=== PATIENT | female | born 1955 | race Caucasian/White ===

== ENCOUNTER 2022-07-20 10:57 | Inpatient (IN) ==
--- NOTE | 2022-07-04 11:01 | PAT Medication Instructions ---
Medication Instructions Date of Service July 04, 2022 Home Medications Medical Marijuana 1 ea PO UD acetaminophen 500 mg tablet 500 mg PO BID albuterol sulfate 90 mcg/actuation aerosol inhaler 1 puff inhalation Q4H PRN amlodipine 10 mg tablet 10 mg PO QAM buspirone 30 mg tablet 30 mg PO BID cyanocobalamin (vitamin B-12) 1,000 mcg/mL injection solution 1,000 mcg IM Q30D cyclobenzaprine 10 mg tablet 10 mg PO HS duloxetine 60 mg capsule,delayed release (Cymbalta) 60 mg PO BID ezetimibe 10 mg tablet 10 mg PO QAM fexofenadine-pseudoephedrine ER 180 mg-240 mg tablet,ext.release 24 hr (Brittney- D 24 Hour) 1 tab PO QAM gabapentin 300 mg tablet,extended release 24 hr 300 mg PO BID hydrochlorothiazide 25 mg tablet 25 mg PO QAM hydroxyzine HCl 50 mg tablet 50 mg PO HS levothyroxine 25 mcg tablet (Synthroid) 25 mcg PO QAM olmesartan 40 mg tablet 40 mg PO QAM oxycodone-acetaminophen 10 mg-325 mg tablet (Percocet) 1 tab PO Q6H PRN ropinirole 2 mg tablet,extended release 24 hr 2 mg PO HS simvastatin 40 mg tablet 40 mg PO QAM sucralfate 1 gram tablet 1 g PO BID trazodone 50 mg tablet 50 mg PO HS Continue as directed cyanocobalamin (vitamin B-12) 1,000 mcg/mL injection solution 1,000 mcg IM Q30D STOP taking 24 hours before surgery Medical Marijuana 1 ea PO UD DO NOT take the morning of surgery fexofenadine-pseudoephedrine ER 180 mg-240 mg tablet,ext.release 24 hr (Brittney- D 24 Hour) 1 tab PO QAM hydrochlorothiazide 25 mg tablet 25 mg PO QAM olmesartan 40 mg tablet 40 mg PO QAM sucralfate 1 gram tablet 1 g PO BID Take morning of surgery With a small sip of water, OTHERWISE NOTHING TO EAT OR DRINK AFTER MIDNIGHT: acetaminophen 500 mg tablet 500 mg PO BID albuterol sulfate 90 mcg/actuation aerosol inhaler 1 puff inhalation Q4H PRN(use if needed; please bring with you to hospital day of surgery if possible) amlodipine 10 mg tablet 10 mg PO QAM buspirone 30 mg tablet 30 mg PO BID duloxetine 60 mg capsule,delayed release (Cymbalta) 60 mg PO BID ezetimibe 10 mg tablet 10 mg PO QAM gabapentin 300 mg tablet,extended release 24 hr 300 mg PO BID oxycodone-acetaminophen 10 mg-325 mg tablet (Percocet) 1 tab PO Q6H PRN(if needed) levothyroxine 25 mcg tablet (Synthroid) 25 mcg PO QAM simvastatin 40 mg tablet 40 mg PO QAM Take evening before surgery acetaminophen 500 mg tablet 500 mg PO BID buspirone 30 mg tablet 30 mg PO BID cyclobenzaprine 10 mg tablet 10 mg PO HS duloxetine 60 mg capsule,delayed release (Cymbalta) 60 mg PO BID gabapentin 300 mg tablet,extended release 24 hr 300 mg PO BID oxycodone-acetaminophen 10 mg-325 mg tablet (Percocet) 1 tab PO Q6H PRN(if needed) hydroxyzine HCl 50 mg tablet 50 mg PO HS ropinirole 2 mg tablet,extended release 24 hr 2 mg PO HS sucralfate 1 gram tablet 1 g PO BID trazodone 50 mg tablet 50 mg PO HS Other Notes If you have any questions please call us at [phone] or [phone] or [phone] or [phone]
--- NOTE | 2022-07-06 12:06 | Anesthesiology Consultation ---
Date of Service July 06, 2022 Assessment & Plan (1) Encounter for pre-operative examination: COVID screening: Per assessment on 07/06: No known COVID-19 positive contacts or current COVID-19 related symptoms. Travel screen negative. Patient vaccinated. At surgeon discretion if preop Covid testing being done. Chart Review Chart Review: Acceptable Risk for Surgery and Patient seen in Pre Admission Testing Teaching & Discussion Pre-Anesthesia Teaching/Discussion Notes: Instructed NPO after midnight before surgery,except medications with 15 cc of water. Medication instructions provided according to the PAT guidelines. History Surgery Operation Date: 07/20/22 12:20 Proposed Procedures p L4-S1 Decompression and Fusion, L3-4 Hardware Removal Spinal Cord Monitoring - Jayson Bailey, Height/Weight Height: 5 ft Weight: 69.5 kg Allergies Allergy/AdvReac Type Severity Reaction Status Date / Time latex Allergy Unknown Rash Verified 07/04/22 14:02 Penicillins Allergy Unknown Unknown Verified 07/06/22 12:04 pollen extracts Allergy Unknown Watery Verified 07/06/22 12:04 eyes, sneezing Medications Home Medications Medication Instructions Recorded Confirmed Last Taken Medical Marijuana 1 ea PO UD 07/04/22 07/04/22 Unknown acetaminophen 500 mg tablet 500 mg PO BID 07/04/22 07/04/22 Unknown albuterol sulfate 90 mcg/actuation 1 puff inhalation Q4H PRN 07/04/22 07/04/22 Unknown aerosol inhaler Shortness Of Breath amlodipine 10 mg tablet 10 mg PO QAM 07/04/22 07/04/22 Unknown buspirone 30 mg tablet 30 mg PO BID 07/04/22 07/04/22 Unknown cyanocobalamin (vitamin B-12) 1,000 mcg IM Q30D 07/04/22 07/04/22 Unknown 1,000 mcg/mL injection solution cyclobenzaprine 10 mg tablet 10 mg PO HS 07/04/22 07/04/22 Unknown duloxetine 60 mg capsule,delayed 60 mg PO BID 07/04/22 07/04/22 Unknown release (Cymbalta) ezetimibe 10 mg tablet 10 mg PO QAM 07/04/22 07/04/22 Unknown fexofenadine-pseudoephedrine ER 1 tab PO QAM 07/04/22 07/04/22 Unknown 180 mg-240 mg tablet,ext.release 24 hr (Brittney-D 24 Hour) gabapentin 300 mg tablet,extended 300 mg PO BID 07/04/22 07/04/22 Unknown release 24 hr hydrochlorothiazide 25 mg tablet 25 mg PO QAM 07/04/22 07/04/22 Unknown hydroxyzine HCl 50 mg tablet 50 mg PO HS 07/04/22 07/04/22 Unknown levothyroxine 25 mcg tablet 25 mcg PO QAM 07/04/22 07/04/22 Unknown (Synthroid) olmesartan 40 mg tablet 40 mg PO QAM 07/04/22 07/04/22 Unknown oxycodone-acetaminophen 10 mg-325 1 tab PO Q6H PRN Pain 07/04/22 07/04/22 Unknown mg tablet (Percocet) ropinirole 2 mg tablet,extended 2 mg PO HS 07/04/22 07/04/22 Unknown release 24 hr simvastatin 40 mg tablet 40 mg PO QAM 07/04/22 07/04/22 Unknown sucralfate 1 gram tablet 1 g PO BID 07/04/22 07/04/22 Unknown trazodone 50 mg tablet 50 mg PO HS 07/04/22 07/04/22 Unknown Past Medical History Medical History Anxiety and depression Asthma Stable History of anemia Remote blood transfusion History of chronic back pain History of numbness LE's History of restless legs syndrome Hyperlipidemia Hypertension Hypothyroidism Seizure Several years ago (felt to be r/t fentanyl patches), no issues since Exercise / Class Metabolic Activity III < 4 Walking/Shop/Light housework (one FS (no CP, + SOB)) Past Surgical History Surgical History History of bilateral tubal ligation History of colonoscopy History of dilation and curettage History of esophagogastroduodenoscopy (EGD) History of lumbar surgery Hx of appendectomy Hx of cataract extraction R/L Hx of cataract extraction R/L Hx of cervical spine surgery Hx of colonoscopy Hx of LASIK Hx of oral surgery implants placed on lower jaw S/P epidural steroid injection Past Anesthesia History No Hx of Anesthesia Complications and No Family Hx of Anesthesia Complications History of PONV No Hx of PONV and No Hx of Motion Sickness Social History Smoking Status: Current some day smoker Do You Dip or Chew Tobacco: No Smoking End Date: Quit 2000 Hx Alcohol Use: Yes alcohol intake frequency: holidays/special occasions only Hx Substance Use: Yes substance use type: marijuana (Medical marijuana daily (vape/inhaled)) Substance Use Type Other:: Medical marijuana daily Last Used Substance Other:: medical marijuana daily Review of Systems Patient denies chest pain, shortness of breath, reflux, cough, wheezing, palpitations. Physical Exam Vital Signs VITALS BP 102/54 P 80 TEMP 98.8 SP02 95%RA RESP 16 PHYSICAL Full cervical extension range of motion. Full TMJ range of motion. TMD 4 finger breaths Mallampati Score 2 Dentition: upper/lower full dentures with lower posts Lungs: clear throughout to auscultation Cardiac: regular rate and rhythm, no murmurs noted Spine: normal Carotid arteries: negative bruit Extremities: no edema Lab Results Anesthesia Preop Results Results Anesthesia Widget: WBC 9.63 K/ul (4.8-10.8) 07/06/22 Hgb 11.7 g/dl (12.0-16.0) L 07/06/22 Hct 34.4 % (34.1-44.9) 07/06/22 Plt 433 K/uL (130-400) H 07/06/22 Na 136 mmol/L (136-145) 07/06/22 K 4.8 mmol/L (3.5-5.1) 07/06/22 Cl 101 mmol/L (98-107) 07/06/22 CO2 29 mmol/L (21-32) 07/06/22 BUN 23 mg/dl (6-23) 07/06/22 Creat 1.29 mg/dl (0.6-1.2) H 07/06/22 Glucose Level 101 mg/dl (70-99(Fasting)) H 07/06/22 PT 10.3 Seconds (9.0-12.0) 07/06/22 PTT 27.3 Seconds (21.0-31.0) 07/06/22 INR 1.0 (0.9-1.1) 07/06/22 Urine Color Dark Yellow 07/06/22 Urine Appearance Clear (Clear) 07/06/22 Urine pH 6.0 (4.5-7.5) 07/06/22 Urine Specific [place] 1.025 (1.000-1.030) 07/06/22 Urine Protein 1+ (Negative) H 07/06/22 Urine Glucose (UA) Negative (Negative) 07/06/22 Urine Ketones Trace (Negative) H 07/06/22 Urine Blood Negative (Negative) 07/06/22 Urine Nitrite Positive (Negative) A 07/06/22 Urine Bilirubin Negative (Negative) 07/06/22 Urine Urobilinogen Negative (Negative) 07/06/22 Urine Leukocyte Esterase Trace (Negative) H 07/06/22 Urine WBC (Auto) 5-10 /hpf (0-5) H 07/06/22 Urine RBC (Auto) 5-10 /hpf (0-4) H 07/06/22 Urine Hyaline Casts (Auto) 10-30 /lpf (0-5) H 07/06/22 Urine Epithelial Cells (Auto) 20-30 /lpf (0-5) H 07/06/22 Urine Bacteria (Auto) 4+ (Negative) H 07/06/22 Blood Type O Positive 07/06/22 Antibody Screen NEGATIVE 07/06/22 Testing Laboratory Results Surgeon's office made aware of abnormal UA* Electrocardiogram Date: 07/06/22 NSR at 71bpm. Chest X-Ray Date: 07/06/22 FINDINGS: Posterior lumbar fixation hardware is seen. Degenerative changes are seen in the spine. The cardiomediastinal silhouette is normal. The lungs are clear. No evidence of pleural effusion or pneumothorax. IMPRESSION: No acute chest disease. Stress Test Date: 03/18/17 Type: nuclear No evidence of myocardial ischemia or infarction. LVEF 55%. Stress ECG without changes diagnostic for myocardial ischemia. COVID-19 Risk Screen Screening Information COVID-19 Screen Date: 07/06/22 Exposure 21 Days Family/Household +COVID Last 21 Days: No Exposure 10 Days Any COVID Exposure Last 10 Days: No Symptoms Last 10 Days Experienced COVID Sx Last 10 Days: No + COVID 0-90 Days COVID + in Last 0-90 Days: No
[~2022-07-20 10:57] MED LIST: ACETAMINOPHEN 500 MG TAB PO SCH; CLINDAMYCIN/D5W 900 MG/50 ML BAG IV SCH; CeleBREX 200 MG CAP PO SCH; GABAPENTIN 300 MG CAP PO SCH; LR 15ML/HR IV SCH
--- NOTE | 2022-07-20 11:49 | History & Physical Bridge Note ---
Date of Service July 20, 2022 History & Physical Bridge Note I have examined the patient, reviewed the History & Physical and in the interval since the performance of the History & Physical I have noted the following changes of clinical significance: no changes noted
--- NOTE | 2022-07-20 11:50 | History & Physical Report ---
Date of Service July 20, 2022 Assessment & Plan (1) Neurogenic claudication due to lumbar spinal stenosis: Plan: L4-S1 decompression and fusion, L3-L4 hardware removal History of Present Illness Chief Complaint: Back and bilateral leg pain Primary Care Provider: Jayson Bailey DO This is a 66-year-old female presents with chronic persistent back and bilateral leg pain. Failing extensive course of nonoperative care she is here for surgical invention. Allergies Allergy/AdvReac Type Severity Reaction Status Date / Time latex Allergy Unknown Rash Verified 07/04/22 14:02 Penicillins Allergy Unknown Unknown Verified 07/06/22 12:04 pollen extracts Allergy Unknown Watery Verified 07/06/22 12:04 eyes, sneezing Home Medications Medication Instructions Recorded Confirmed Type Medical Marijuana 1 ea PO UD 07/04/22 07/20/22 History acetaminophen 500 mg tablet 500 mg PO BID 07/04/22 07/20/22 History albuterol sulfate 90 mcg/actuation 1 puff inhalation Q4H PRN 07/04/22 07/20/22 History aerosol inhaler Shortness Of Breath amlodipine 10 mg tablet 10 mg PO QAM 07/04/22 07/20/22 History buspirone 30 mg tablet 30 mg PO BID 07/04/22 07/20/22 History cyanocobalamin (vitamin B-12) 1,000 mcg IM Q30D 07/04/22 07/20/22 History 1,000 mcg/mL injection solution cyclobenzaprine 10 mg tablet 10 mg PO HS 07/04/22 07/20/22 History duloxetine 60 mg capsule,delayed 60 mg PO BID 07/04/22 07/20/22 History release (Cymbalta) ezetimibe 10 mg tablet 10 mg PO QAM 07/04/22 07/20/22 History fexofenadine-pseudoephedrine ER 1 tab PO QAM 07/04/22 07/20/22 History 180 mg-240 mg tablet,ext.release 24 hr (Brittney-D 24 Hour) gabapentin 300 mg tablet,extended 300 mg PO BID 07/04/22 07/20/22 History release 24 hr hydrochlorothiazide 25 mg tablet 25 mg PO QAM 07/04/22 07/20/22 History hydroxyzine HCl 50 mg tablet 50 mg PO HS 07/04/22 07/20/22 History levothyroxine 25 mcg tablet 25 mcg PO QAM 07/04/22 07/20/22 History (Synthroid) olmesartan 40 mg tablet 40 mg PO QAM 07/04/22 07/20/22 History oxycodone-acetaminophen 10 mg-325 1 tab PO Q6H PRN Pain 07/04/22 07/20/22 History mg tablet (Percocet) ropinirole 2 mg tablet,extended 2 mg PO HS 07/04/22 07/20/22 History release 24 hr simvastatin 40 mg tablet 40 mg PO QAM 07/04/22 07/20/22 History sucralfate 1 gram tablet 1 g PO BID 07/04/22 07/20/22 History trazodone 50 mg tablet 50 mg PO HS 07/04/22 07/20/22 History Past Med/Surg History Medical History Anxiety and depression Asthma Stable History of anemia Remote blood transfusion History of chronic back pain History of numbness LE's History of restless legs syndrome Hyperlipidemia Hypertension Hypothyroidism Seizure Several years ago (felt to be r/t fentanyl patches), no issues since Surgical History History of bilateral tubal ligation History of colonoscopy History of dilation and curettage History of esophagogastroduodenoscopy (EGD) History of lumbar surgery Hx of appendectomy Hx of cataract extraction R/L Hx of cataract extraction R/L Hx of cervical spine surgery Hx of colonoscopy Hx of LASIK Hx of oral surgery implants placed on lower jaw S/P epidural steroid injection Social History (System 07/04/22 @ 14:02 by Jerica Wesley) Smoking Status: Current some day smoker Smoking End Date: Quit 2000; Second Hand Exposure: No; Do You Dip or Chew Tobacco: No; Tobacco Cessation Education Requested by Patient: No Hx Alcohol Use: Yes Hx Substance Use: Yes Last Used Substance Other:: medical marijuana daily Substance Use Type Other:: Medical marijuana daily Preferred Language: Croatian Communication Ability: Effective Blending Tank Helper Required: No Beliefs That Will Affect Care: None Current Living Situation: Spouse Other Information That Helps Us Care for You: No Feels Safe at Home: Yes Safety Concerns: Feels Safe At This Time Assistive Devices: Denture - Upper, Denture - Lower, Glasses and Other Assistive Devices Comment: reading glasses; oral implants in lower jaw Physical Exam Physical Exam: Patient is alert and oriented Heart regular rhythm Lungs clear Results & Data Results & Data ([facility]) Vital Signs (Past 12 Hours) Vital Signs Temp Pulse Resp BP Pulse Ox O2 Del Method 07/20/22 11:42 37.2 C 70 18 119/74 98 Room Air
[2022-07-20] MEDS ORDERED: LIDOCAINE 2% MPF LOCAL 5 ML VIAL INFIL ONE (12:13)
[2022-07-20] MEDS ORDERED: DEXAMETHASONE SOD INJ 4 MG/ML VIAL ONE (12:13)
[2022-07-20] MEDS ORDERED: NEOSTIGMINE METHYLSULFATE 1 MG/ML 10ML VIAL ONE (12:13)
[2022-07-20] MEDS ORDERED: MIDAZOLAM HCL 1 MG/ML 2ML VIAL ONE (12:13)
[2022-07-20] MEDS ORDERED: ROCURONIUM BROMIDE 10 MG/ML 5 ML VIAL IV ONE (12:13)
[2022-07-20] MEDS ORDERED: PROPOFOL IV EMULSION 10 MG/ML 20 ML VIAL IV ONE (12:13)
[2022-07-20] MEDS ORDERED: GLYCOPYRROLATE 0.2 MG/ML VIAL ONE (12:13)
[2022-07-20] MEDS ORDERED: fentaNYL citrate 100 MCG/2 ML VIAL ONE (12:13)
[2022-07-20] MEDS ORDERED: ONDANSETRON INJ 2 MG/ML 2 ML VIAL ONE ×2 (12:13→14:05)
[2022-07-20] MEDS ORDERED: ONDANSETRON INJ 2 MG/ML 2 ML VIAL IV PRN ×2 (12:20→16:38)
[2022-07-20] MEDS ORDERED: HYDROmorphone INJ 2 MG/ML SYR/VIAL IV PRN (12:20)
[2022-07-20] MEDS ORDERED: fentaNYL citrate 100 MCG/2 ML VIAL IV PRN (12:20)
[2022-07-20] MEDS ORDERED: ATROPINE SULFATE 0.1 MG/ML 10ML SYR IV PRN (12:20)
[2022-07-20] MEDS ORDERED: ePHEDrine sulfate 50 MG/ML AMP IV PRN (12:20)
[2022-07-20] MEDS ORDERED: ceFAZolin 330 MG/ML 1 GM VIAL ONE (12:25)
[2022-07-20] MEDS ORDERED: BUPIVACAINE/EPINEPHRINE 0.25% 1:200,000 30 ML VIAL ONE (12:25)
[2022-07-20] MEDS ORDERED: KETAMINE 50 MG/5 ML SYRINGE ONE (12:46)
[2022-07-20] MEDS ORDERED: FLOSEAL HEMOSTATIC MATRIX 10ML TOP ONE (13:08)
[2022-07-20] MEDS ORDERED: SUGAMMADEX SODIUM 200 MG/2 ML VIAL IV ONE (13:46)
[2022-07-20] MEDS ORDERED: HYDROmorphone INJ 2 MG/ML SYR/VIAL ONE (13:50)
[2022-07-20] MEDS: FLOSEAL HEMOSTATIC MATRIX 10ML TOP ONE ×2 (14:31→16:42)
--- NOTE | 2022-07-20 14:54 | Operative Report ---
Post Operative Report Pre & Post Diagnosis Operation Date: 07/20/22 12:35 Pre-Op Diagnosis: Spinal stenosis with neurogenic claudication and spondylolisthesis L5-S1 Post-Op Diagnosis: Same I identified the patient and participated in the time-out.: Yes Procedure Operation Date: 07/20/22 12:35 Actual Procedures #1 removal of instrumentation L3-L4. #2 exploration of fusion L3-L4. #3 lumbar decompression with bilateral medial facetectomies and foraminotomies L4-L5 L5- S1. #4 posterior spinal fusion L4-L5 L5-S1. #5 placement posterior instrumentation L3-S1. #6 interbody fusion L4-L5 L5-S1. #7 placement of Spira 9 x 26 mm cage at L4-5 and 12 x 26 mm at L5-S1. #8 placement locally harvested morselized autograft in the posterior gutters. #9 placement I factor model V toss interbody space and posterior gutters. Surgeon Jayson Bailey, Parking Enforcer Dominick Farias Estimated Blood Loss 250 Findings Consistent with Post-Op Diagnosis Specimens None Indications This is a 66-year-old female who presents to the emergency diagnosis after failing since course of nonoperative care she is here for the above-mentioned procedure. Description of Procedure Patient was met with identified informed consent obtained. Patient was then taken to the operative suite underwent a patient placed in a prone position the [place] table top Dannie frame. All bony prominences well-padded eyes inspected to ensure no external pressure placed upon them. This point lumbar spine was prepped and draped in a sterile fashion. Sharp dissection with the assistance of bradycardia was performed down to and exposing the instrumentation at L3-L4 and the lamina at L4-5 and the sacral ala bilaterally. I then proceeded move the hardware at L3-L4 bilaterally. This was necessary in order to replace the instrumentation and extend the fusion which would be necessary with the amount of decompression and instability present. I explored the fusion mass noting to be mature and intact. Then performed a complete laminectomy of L5 and L4 including bilateral medial facetectomies and foraminotomies addressing severe spinal stenosis as well as creating further instability. Subsequently pedicle screws then placed at L3-L4-L5 and S1 levels bilaterally with assistance of fluoroscopy and appropriately sized robbie placed. By way of a transit foraminal approach on the left complete discectomy L5-S1 was performed endplates curetted to subcortical bleeding bone and a 12 x 26 mm spiral cage with I factor tapped in position. Then proceeded to L4-L5 and again by way the transforaminal approach and left complete discectomy performed endplates curetted to subcortically bone and a 9 x 26 mm spiral cage with I factor tapped in position. The rods were then locked into final position bilaterally. Transverse processes of L for L5 and sacral ala burred to subcortical bleeding bone. I factor model V toss and locally harvested morselized autograft was placed in the posterior gutters. 15 round TRENT drain inserted. The incision was then closed with 1 Vicryl in the fascia 2-0 Vicryl subcutaneously and 4 Monocryl for final skin closure. Steri-Strips dressings placed. Patient waken taken to PACU in stable condition. Please note spinal cord monitoring was utilized at the procedure no changes noted. Lastly Dominick Farias was present at the entire surgery on the patient positioning complex portions of the surgery and fascial closure. I attest to the content of the Intraoperative Record and any orders documented therein. Any exceptions are noted below.
--- NOTE | 2022-07-20 15:02 | Fluoroscopy Report ---
FL lumbar spine 2-3V CLINICAL HISTORY: L4-S1 DFI L3-4 HR TECHNIQUE: 2 views were obtained with the C-arm in the OR with the above procedure. Total fluoroscopy time was 35 seconds. Comparison: None available at the time of this dictation. FINDINGS/IMPRESSION: Intraoperative images were obtained of L4-S1 discectomy and fusion. Hardware rem oval of L3-L4 is noted. Please correlate with intraoperative fluoroscopy and operative report. ACT 112: Negative or not required by law. Electronically signed by: Donovan Baker M.D. 07/20/2022 3:01 PM
--- NOTE | 2022-07-20 15:53 | Anesthesiology Progress Note ---
Date of Service July 20, 2022 Anesthesia Post Procedure Vital Signs Vital Signs: Temp Pulse Pulse Resp BP BP Pulse Ox 07/20/22 15:35 68 11 L 92/59 L 97 07/20/22 15:25 68 13 109/73 100 07/20/22 15:15 96.8 F L 69 15 142/71 H 100 07/20/22 11:42 99.0 F 70 18 119/74 98 O2 Del Method O2 Flow Rate 07/20/22 15:35 Oxymask 6 07/20/22 15:25 Oxymask 6 07/20/22 15:15 Oxymask 6 07/20/22 11:42 Room Air Pain Intensity Bilateral Buttock: Pain Intensity: 8 Back: Pain Intensity: 7 Transfer of Care Handoff Completed per policy Notes Mental Status: alert / awake / arousable and participated in evaluation Patient Amnestic to Procedure: Yes Nausea / Vomiting: adequately controlled Pain: adequately controlled Airway Patency, RR, SpO2: stable & adequate BP & HR: stable & adequate Hydration State: stable & adequate Anesthetic Complications: no major complications apparent and Pt Satisfied with anesthetic care
[2022-07-20] MEDS ORDERED: MAGNESIUM HYDROXIDE SUSP 30 ML UDC PO PRN (16:38)
[2022-07-20] MEDS ORDERED: METOCLOPRAMIDE HCL INJ 5 MG/ML 2 ML VIAL IV PRN (16:38)
[2022-07-20] MEDS ORDERED: LORazepam 0.5 MG in SYRINGE 0 ML IV PRN (16:38)
[2022-07-20] MEDS ORDERED: ONDANSETRON 4 MG OD TAB PO PRN (16:38)
[2022-07-20] MEDS ORDERED: HYDROmorphone INJ 1 MG/ML SYRINGE IV PRN (16:38)
[2022-07-20] MEDS ORDERED: SOD PHOSPHATE/SOD BIPHOSPHATE ENEMA 132 ML BTL PR PRN (16:38)
[2022-07-20] MEDS ORDERED: PROMETHAZINE HCL 12.5 MG in SODIUM CHLORIDE 0.9% 50 ML IV PRN (16:38)
[2022-07-20] MEDS ORDERED: diphenhydrAMINE Capsule 25 MG CAP PO PRN (16:38)
[2022-07-20] MEDS ORDERED: ACETAMINOPHEN 500 MG TAB PO PRN (16:38)
[2022-07-20] MEDS ORDERED: LORazepam 0.5 MG TAB PO PRN (16:38)
[2022-07-20] MEDS ORDERED: NALOXONE HCL 0.4 MG/1 ML VIAL/CARP IV PRN (16:38)
[2022-07-20] MEDS ORDERED: bisacodyL 10 MG SUPP PR PRN (16:38)
[2022-07-20] MEDS ORDERED: FAMOTIDINE 20 MG TAB PO PRN (16:38)
[2022-07-20] MEDS ORDERED: HYDROmorphone INJ 0.5 MG/0.5 ML SYR IV PRN (16:38)
[2022-07-20] MEDS ORDERED: hydrOXYzine HCl 25 MG TAB PO PRN (16:38)
[2022-07-20] MEDS ORDERED: ACETAMINOPHEN 1,000 MG/100 ML VIAL IV PRN (16:38)
[2022-07-20] MEDS ORDERED: ALUMINUM/MAGNESIUM SUSP 30 ML UDC PO PRN (16:38)
[2022-07-20] MEDS: SODIUM CHLORIDE 0.9% 1000ML 1,000 ML IV SCH (16:49)
[2022-07-20] MEDS ORDERED: MEDICAL MARIJUANA PO SCH (17:00)
--- NOTE | 2022-07-20 17:17 | Hospitalist Consultation ---
Date of Consultation July 20, 2022 Assessment & Plan (1) Neurogenic claudication due to lumbar spinal stenosis: - Pain management, bowel regimen and DVT ppx per the primary team - PT/OT consults, pt is planning on outpatient therapy - Follow am CBC to monitor for acute blood loss, hgb from 07/05 was 11.7, hct 34.3 --- will check now with BP of 91/47. - Increase NSS to 125 ml/hr - Hold antihypertensive medications - none are scheduled for this evening but she did take them prior to surgery this morning. (2) Hypertension: - Hold olmesartan, HCTZ, amlodipine as above (3) Hyperlipidemia: - Continue simvastatin 40 mg daily (4) Hypothyroidism: - Cont levothyroxine (5) Obesity (BMI 30.0-34.9): - BMI of 30.1, diet and exercise encouraged throughout hospital stay and on discharge (6) Asthma: - Stable, chronic - Would again encourage cessation of marijuana use to improve asthma. Pt has used her albuterol inhaler today for breathing (7) Anxiety and depression: - May continue buspar prn for anxiety, cymbalta 60 mg BID, gabapentin 300 mg BID, and requip HS and hydroxyzine 50 mg HS - Hold inhalation of medical marijuana. Do not allow oral gummies currently DVT ppx: teds, scds, no chemical anticoagulation in the setting of acute spinal surgery CODE: Full code Dispo: From home, discharge home per the primary team Thank you for involving us in the care of Ms. Luis. Please do not hesitate to call with questions or concerns. At this time medicine service will follow along. Supervising Physician Co-Signing Physician Notes I have seen and examined the patient and have discussed the case with the provider above. I agree with the assessment and plan as stated. 66 yo F s/p lumbar spine surgery. She reports persistent numbness in her left left that is chronic. Pain is well managed. She is requesting to use her medical marijuana which are some gummies she brought with her. She was advised of the policy and the nurse was updated. Order was placed for her to dose herself 1/2 gummy q24h which is her reported dosage at home (cannot be verified). She reports well controlled pain in her back at this time and is very hungry and requesting regular food. My physical exam reflects a WNWD female in NAD who is mentating clearly. Cardiopulmonary exam is WNL and she has decreased sensation in her left leg compared with the right. +TRENT drain intact CBC this evening was reviewed and she has expected postoperative anemia. Agree with plan above i ncluding holding antihypertensives in am with current post operative hypotension, likely related to anesthesia. Thank you for this consultation and we will continue to follow her progress daily. DO Porfirio History of Present Illness Reason for Consultation: Medical management Requesting Physician: Attending Physician: Jayson Bailey DO History of Present Illness This is a 66 yo F with PMhx of HTN, HLD, hypothyroidism, seizure, chronic back pain, asthma, anxiety and depression with marijuana use, who presents for elective spinal surgery by involving lumbar spinal fusion and decompression from L5- L1. Her is present at bedside. Pt notes she is doing well, tolerating coffee s/p surgery but hasn't had anything else to eat yet. She recently had dilaudid pushed for back pain and states its improving. Had BM this morning before surgery. She admits to smoking marijuana at least 6 times per day, and has gummies at bedside and asks to use it while at bedside. Discussion held about not being allowed to smoke marijuana and she is agreeable. Pt BP is low currently and advised not to take the oral gummies that she has at beside. PT denies any complaints of lightheadedness, dizziness, chest pain or shortness of breath. At baseline does not wear O2 at all. She does not use oxygen at night. Allergies Allergy/AdvReac Type Severity Reaction Status Date / Time latex Allergy Unknown Rash Verified 07/04/22 14:02 Penicillins Allergy Unknown Unknown Verified 07/06/22 12:04 pollen extracts Allergy Unknown Watery Verified 07/06/22 12:04 eyes, sneezing Home Medications Medication Instructions Recorded Confirmed Type Medical Marijuana 1 ea PO UD 07/04/22 07/20/22 History acetaminophen 500 mg tablet 500 mg PO BID 07/04/22 07/20/22 History albuterol sulfate 90 mcg/actuation 1 puff inhalation Q4H PRN 07/04/22 07/20/22 History aerosol inhaler Shortness Of Breath amlodipine 10 mg tablet 10 mg PO QAM 07/04/22 07/20/22 History buspirone 30 mg tablet 30 mg PO BID 07/04/22 07/20/22 History cyanocobalamin (vitamin B-12) 1,000 mcg IM Q30D 07/04/22 07/20/22 History 1,000 mcg/mL injection solution cyclobenzaprine 10 mg tablet 10 mg PO HS 07/04/22 07/20/22 History duloxetine 60 mg capsule,delayed 60 mg PO BID 07/04/22 07/20/22 History release (Cymbalta) ezetimibe 10 mg tablet 10 mg PO QAM 07/04/22 07/20/22 History fexofenadine-pseudoephedrine ER 1 tab PO QAM 07/04/22 07/20/22 History 180 mg-240 mg tablet,ext.release 24 hr (Brittney-D 24 Hour) gabapentin 300 mg tablet,extended 300 mg PO BID 07/04/22 07/20/22 History release 24 hr hydrochlorothiazide 25 mg tablet 25 mg PO QAM 07/04/22 07/20/22 History hydroxyzine HCl 50 mg tablet 50 mg PO HS 07/04/22 07/20/22 History levothyroxine 25 mcg tablet 25 mcg PO QAM 07/04/22 07/20/22 History (Synthroid) olmesartan 40 mg tablet 40 mg PO QAM 07/04/22 07/20/22 History oxycodone-acetaminophen 10 mg-325 1 tab PO Q6H PRN Pain 07/04/22 07/20/22 History mg tablet (Percocet) ropinirole 2 mg tablet,extended 2 mg PO HS 07/04/22 07/20/22 History release 24 hr simvastatin 40 mg tablet 40 mg PO QAM 07/04/22 07/20/22 History sucralfate 1 gram tablet 1 g PO BID 07/04/22 07/20/22 History trazodone 50 mg tablet 50 mg PO HS 07/04/22 07/20/22 History Patient History Medical History Anxiety and depression Asthma Stable History of anemia Remote blood transfusion History of chronic back pain History of numbness LE's History of restless legs syndrome Hyperlipidemia Hypertension Hypothyroidism Seizure Several years ago (felt to be r/t fentanyl patches), no issues since Surgical History History of bilateral tubal ligation History of colonoscopy History of dilation and curettage History of esophagogastroduodenoscopy (EGD) History of lumbar surgery Hx of appendectomy Hx of cataract extraction R/L Hx of cataract extraction R/L Hx of cervical spine surgery Hx of colonoscopy Hx of LASIK Hx of oral surgery implants placed on lower jaw S/P epidural steroid injection Social History Smoking Status: Current some day smoker Smoking End Date: Quit 2000; Second Hand Exposure: No; Do You Dip or Chew Tobacco: No; Tobacco Cessation Education Requested by Patient: No Hx Alcohol Use: Yes Hx Substance Use: Yes Last Used Substance Other:: medical marijuana daily Substance Use Type Other:: Medical marijuana daily Preferred Language: Occitan Communication Ability: Effective Promotion Officer Required: No Beliefs That Will Affect Care: None Current Living Situation: Spouse Other Information That Helps Us Care for You: No Feels Safe at Home: Yes Safety Concerns: Feels Safe At This Time Assistive Devices: Denture - Upper, Denture - Lower, Glasses and Other Assistive Devices Comment: reading glasses; oral implants in lower jaw Review of Systems Review of Systems: Constitutional: No fever, sweats or chills Eyes: No diplopia, no worsening or blurred vision ENT: normal hearing, no trouble swallowing Respiratory: No cough, sputum, dyspnea at rest or on exertion Cardiovascular: No chest pain, tightness or palpitations Abdomen: No pain, nausea, vomiting, diarrhea or constipation Back: Pain, improved with recent dilaudid push Musculoskeletal: No joint pain, calf pain, swelling Neurologic: No weakness, numbness/tingling, or balance problems Psychiatric: + anxiety & depression on medication Skin: No rash or itch Physical Exam Physical Exam: General: awake, alert, no apparent distress, + appears older than stated age Head: Normocephalic, atraumatic ENT: PERRL, EOMI, no pharyngeal exudate, mucous membranes moist, +Coarse voice (pt reports is normal) Chest: Diminished slightly throughout, but clear to auscultation, on room air, no adventitious breath sounds Cardiac: Regular rate and rhythm, no murmur, no JVD, normal peripheral pulses, good capillary refill Abdominal: NABS x 4 quadrants, soft, nondistended, nontender to palpation, no rebound or guarding Back: dressing c/d/i, TRENT drain in place Extremities: Normal inspection, no peripheral edema or erythema, calfs nontender to palpation Psych: Normal mood and affect Neuro: AAO x 3, strength intact bilaterally and rated 5/5, no motor deficits, speech is clear, no peripheral sensory deficits Results & Data Results & Data ([facility]) Vital Signs (Past 12 Hours) Vital Signs Temp Pulse Pulse Resp BP BP Pulse Ox 07/20/22 16:44 36.5 C 67 18 114/73 92 07/20/22 16:05 73 19 116/59 L 94 07/20/22 15:55 36.3 C L 71 17 114/59 L 95 07/20/22 15:45 75 20 110/64 92 07/20/22 15:35 68 11 L 92/59 L 97 07/20/22 15:25 68 13 109/73 100 07/20/22 15:15 36.0 C L 69 15 142/71 H 100 07/20/22 11:42 37.2 C 70 18 119/74 98 O2 Del Method O2 Flow Rate 07/20/22 16:44 Nasal Cannula 2 07/20/22 16:05 Nasal Cannula 2 07/20/22 15:55 Nasal Cannula 2 07/20/22 15:45 Room Air 07/20/22 15:35 Oxymask 6 07/20/22 15:25 Oxymask 6 07/20/22 15:15 Oxymask 6 07/20/22 11:42 Room Air Laboratory Results 07/20/22 07/20/22 Unknown 11:21 SARS-CoV-2, RNA, NAAT NEGATIVE Blood Type O Positive Antibody Screen NEGATIVE Crossmatch See Detail Diagnostic Findings 07/20/22 07/20/22 Unknown 11:21 SARS-CoV-2, RNA, NAAT NEGATIVE Blood Type O Positive Antibody Screen NEGATIVE Crossmatch See Detail
[2022-07-20 17:54] LABS: Hematocrit (blood only) 29.1 % (34.1-44.9); Hemoglobin 9.8 g/dl (12.0-16.0); Mean Corpuscular Hemoglobin 30.5 pg (25.0-34.0); Mean Corpuscular Hgb Conc 33.7 g/dL (32.0-36.0); Mean Corpuscular Volume 90.7 fL (80.0-100.0); Mean Platelet Volume 9.4 fL (9.4-12.3); Platelet Count 316 K/uL (130-400); RDW Coefficient of Variation 13.3 % (11.5-14.5); RDW Standard Deviation 44.2 fL (36.4-46.3); Red Blood Count 3.21 M/uL (3.93-5.22); White Blood Count 16.43 K/ul (4.8-10.8)
[2022-07-20] MEDS: MEDICAL MARIJUANA PO SCH (20:20)
[2022-07-20] MEDS: DOCUSATE SODIUM/SENNA 50/8.6MG TAB PO SCH (20:24)
[2022-07-20] MEDS: busPIRone 15 MG TAB PO SCH (20:24)
[2022-07-20] MEDS: traZODone HCL 50 MG TAB PO SCH (20:25)
[2022-07-20] MEDS: GABAPENTIN 300 MG CAP PO SCH (20:26)
[2022-07-20] MEDS: DULoxetine HCL 60 MG CAP PO SCH (20:26)
[2022-07-20] MEDS: hydrOXYzine HCl 25 MG TAB PO SCH (20:27)
[2022-07-20] MEDS: rOPINIRole HCL 2 MG TABLET PO SCH (20:27)
[2022-07-20] MEDS: SUCRALFATE 1 GM TAB PO SCH (20:27)
[2022-07-20] MEDS: ceFAZolin 1000MG 1,000 MG/7.5 ML SYR IV SCH (22:14)
[2022-07-21] MEDS: SODIUM CHLORIDE 0.9% 1000ML 1,000 ML IV SCH (01:25)
[2022-07-21] MEDS: POLYETHYLENE (MIRALAX) 17 GM PACK PO SCH ×4 (06:09→23:03)
[2022-07-21] MEDS: ceFAZolin 1000MG 1,000 MG/7.5 ML SYR IV SCH (06:09)
[2022-07-21] MEDS: LEVOTHYROXINE SODIUM 25 MCG TABLET PO SCH (06:10)
[2022-07-21 06:34] LABS: Basophils # (auto) 0.01 K/uL (0-0.2); Basophils % (auto) 0.1 %; Hematocrit (blood only) 24.3 % (34.1-44.9); Hemoglobin 8.2 g/dl (12.0-16.0); Immature Granulocytes # (auto) 0.06 K/uL (0.00-0.02); Immature Granulocytes % (auto) 0.5 %; Lymphocytes # (auto) 0.96 K/uL (1.2-3.4); Lymphocytes % (auto) 7.5 %; Mean Corpuscular Hemoglobin 30.6 pg (25.0-34.0); Mean Corpuscular Hgb Conc 33.7 g/dL (32.0-36.0); Mean Corpuscular Volume 90.7 fL (80.0-100.0); Mean Platelet Volume 9.6 fL (9.4-12.3); Monocytes # (auto) 0.66 K/uL (0.24-0.82); Monocytes % (auto) 5.1 %; Neutrophils # (auto) 11.13 K/uL (1.4-6.5); Neutrophils % (auto) 86.8 %; Platelet Count 285 K/uL (130-400); RDW Coefficient of Variation 13.4 % (11.5-14.5); RDW Standard Deviation 44.9 fL (36.4-46.3); Red Blood Count 2.68 M/uL (3.93-5.22); White Blood Count 12.82 K/ul (4.8-10.8)
[2022-07-21 06:50] LABS: BUN Creatinine Ratio 17.3 (10-20); Calcium 7.9 mg/dl (8.5-10.1); Creatinine Clr Calc Pharmacy 58.8 ml/min; Est GFR (African American) 87.1 ml/min; Est GFR (Non-African American) 75.2 ml/min; Potassium 4.4 mmol/L (3.5-5.1)
--- NOTE | 2022-07-21 07:49 | Hospitalist Progress Note ---
Date of Service July 21, 2022 Assessment & Plan (1) Neurogenic claudication due to lumbar spinal stenosis: Plan: (1) Neurogenic claudication due to lumbar spinal stenosis: - Pain management, bowel regimen and DVT ppx per the primary team - PT/OT consults, pt is planning on outpatient therapy Acute on chronic anemia Acute blood loss anemia vs. dilutional expected, currently no symptoms of anemia, cont. to closely monitor Pre-op Hgb ~11, now down to 8.2 (2) Hypertension: - Hold olmesartan, HCTZ -resume amlodipine now at lower dose (3) Hyperlipidemia: - Continue simvastatin 40 mg daily (4) Hypothyroidism: - Cont levothyroxine (5) Obesity (BMI 30.0-34.9): - BMI of 30.1, counselling (6) Asthma: - Stable, chronic - encouraged cessation of marijuana use to improve asthma. Pt has used her albuterol inhaler today for breathing (7) Anxiety and depression: - May continue buspar prn for anxiety, cymbalta 60 mg BID, gabapentin 300 mg BID, and requip HS and hydroxyzine 50 mg HS - Hold inhalation of medical marijuana.Takes oral gummies DVT ppx: norah, sams, per primary team CODE: Full code Dispo: From home, discharge home per the primary team Thank you for involving us in the care of Ms. Luis. At this time medicine nahum steiner will follow along. Admission and Anticipated Discharge Date Admission Date: July 20, 2022 Subjective Pt seen in follow up of med. consult s/p lumbar surgery Currently sitting up in chair, in NAD Denies any fever chills, chest pain or shortness of breath, abdominal pain, nausea vomiting Still has Cota catheter placed Review of Systems Review of Systems: All systems reviewed & are unremarkable except as noted in Subjective Physical Exam Physical Exam: General: awake, alert, no apparent distress, + appears older than stated age Head: Normocephalic, atraumatic ENT: PERRL, EOMI Chest: Diminished slightly throughout, but clear to auscultation, on room air, no adventitious breath sounds Cardiac: Regular rate and rhythm, no murmur, no JVD Abdominal: NABS x 4 quadrants, soft, nondistended, nontender to palpation Back: dressing c/d/i, TRENT drain in place Extremities: Normal inspection, no peripheral edema or erythema, calves nontender to palpation Psych: Normal mood and affect Neuro: AAO x 3, strength intact bilaterally and rated 5/5, no motor deficits, speech is clear, no peripheral sensory deficits Results & Data Results & Data ([facility]) Vital Signs (Past 12 Hours) Vital Signs Temp Pulse Resp BP BP Pulse Ox O2 Del Method 07/21/22 07:27 36.7 C 76 16 96/59 L 96 Room Air 07/21/22 06:10 36.7 C 75 18 108/72 93 Room Air 07/21/22 03:03 36.6 C 80 17 105/53 L 95 Room Air 07/20/22 22:17 36.6 C 78 18 110/62 95 Room Air Laboratory Results 07/21/22 07/21/22 07/21/22 Range/Units 05:58 05:58 05:58 WBC 12.82 H (4.8-10.8) K/ul RBC 2.68 L (3.93-5.22) M/uL Hgb 8.2 L (12.0-16.0) g/dl Hct 24.3 L (34.1-44.9) % MCV 90.7 (80.0-100.0) fL MCH 30.6 (25.0-34.0) pg MCHC 33.7 (32.0-36.0) g/dL RDW Std Deviation 44.9 (36.4-46.3) fL RDW Coeff of Deidre 13.4 (11.5-14.5) % Plt Count 285 (130-400) K/uL MPV 9.6 (9.4-12.3) fL Immature Gran % (Auto) 0.5 % Neut % (Auto) 86.8 % Lymph % (Auto) 7.5 % [place] % (Auto) 5.1 % Eos % (Auto) 0.0 % Baso % (Auto) 0.1 % Neut # (Auto) 11.13 H (1.4-6.5) K/uL Lymph # (Auto) 0.96 L (1.2-3.4) K/uL [place] # (Auto) 0.66 (0.24-0.82) K/uL Eos # (Auto) 0.00 (0-0.50) K/uL Baso # (Auto) 0.01 (0-0.2) K/uL Immature Gran # (Auto) 0.06 H (0.00-0.02) K/uL Sodium 135 L (136-145) mmol/L Potassium 4.4 (3.5-5.1) mmol/L Chloride 105 (98-107) mmol/L Carbon Dioxide 25 (21-32) mmol/L Anion Gap 5 (3-11) BUN 14 (6-23) mg/dl Creatinine 0.81 (0.6-1.2) mg/dl Est Cr Clr Drug Dosing 58.8 ml/min Est GFR ( Amer) 87.1 ml/min Est GFR (Non-Af Amer) 75.2 ml/min BUN/Creatinine Ratio 17.3 (10-20) Glucose 124 H (70-99(Fasting)) mg/dl Calcium 7.9 L (8.5-10.1) mg/dl Hepatitis C Ab (EIA) Pending Hep C Ab Signal/Cutoff Pending SARS-CoV-2, RNA, NAAT (NEGATIVE) Blood Type Antibody Screen Crossmatch 07/20/22 07/20/22 07/20/22 Range/Units Unknown 17:42 11:21 WBC 16.43 H (4.8-10.8) K/ul RBC 3.21 L (3.93-5.22) M/uL Hgb 9.8 L (12.0-16.0) g/dl Hct 29.1 L (34.1-44.9) % MCV 90.7 (80.0-100.0) fL MCH 30.5 (25.0-34.0) pg MCHC 33.7 (32.0-36.0) g/dL RDW Std Deviation 44.2 (36.4-46.3) fL RDW Coeff of Deidre 13.3 (11.5-14.5) % Plt Count 316 (130-400) K/uL MPV 9.4 (9.4-12.3) fL Immature Gran % (Auto) % Neut % (Auto) % Lymph % (Auto) % [place] % (Auto) % Eos % (Auto) % Baso % (Auto) % Neut # (Auto) (1.4-6.5) K/uL Lymph # (Auto) (1.2-3.4) K/uL [place] # (Auto) (0.24-0.82) K/uL Eos # (Auto) (0-0.50) K/uL Baso # (Auto) (0-0.2) K/uL Immature Gran # (Auto) (0.00-0.02) K/uL Sodium (136-145) mmol/L Potassium (3.5-5.1) mmol/L Chloride (98-107) mmol/L Carbon Dioxide (21-32) mmol/L Anion Gap (3-11) BUN (6-23) mg/dl Creatinine (0.6-1.2) mg/dl Est Cr Clr Drug Dosing ml/min Est GFR ( Amer) ml/min Est GFR (Non-Af Amer) ml/min BUN/Creatinine Ratio (10-20) Glucose (70-99(Fasting)) mg/dl Calcium (8.5-10.1) mg/dl Hepatitis C Ab (EIA) Hep C Ab Signal/Cutoff SARS-CoV-2, RNA, NAAT NEGATIVE (NEGATIVE) Blood Type O Positive Antibody Screen NEGATIVE Crossmatch See Detail Medications Administered Current Inpatient Medications Acetaminophen (Acetaminophen 500 Mg Tab) 1,000 mg PO Q8H PRN PRN Reason: MILD Pain Scale 1,2,3 & Pre PT Stop: 08/19/22 16:37 Al Hydrox/Mg Hydrox/Simethicone (Aluminum/Magnesium Susp 30 Ml Udc) 30 ml PO Q6H PRN PRN Reason: Dyspepsia Stop: 08/19/22 16:37 Bisacodyl (Bisacodyl 10 Mg Supp) 10 mg WI DAILY PRN PRN Reason: Constipation Stop: 08/19/22 16:37 Buspirone HCl (Buspirone 15 Mg Tab) 30 mg PO BID ECTOR Stop: 08/19/22 20:59 Last Admin: 07/20/22 20:24 Dose: 30 mg Cyanocobalamin (Cyanocobalamin 1000 Mcg/Ml Vial) 1,000 mcg IM Q30D [facility] Stop: 09/17/22 16:37 Diphenhydramine HCl (Diphenhydramine Capsule 25 Mg Cap) 25 mg PO Q6H PRN PRN Reason: Allergic Rhinitis/Insomnia Stop: 08/19/22 16:37 Duloxetine HCl (Duloxetine Hcl 60 Mg Cap) 60 mg PO BID [facility] Stop: 08/19/22 20:59 Last Admin: 07/20/22 20:26 Dose: 60 mg Ezetimibe (Ezetimibe 10 Mg Tablet) 10 mg PO QAM [facility] Stop: 08/20/22 08:59 Famotidine (Famotidine 20 Mg Tab) 20 mg PO Q12H PRN PRN Reason: Dyspepsia Stop: 08/19/22 16:37 Gabapentin (Gabapentin 300 Mg Cap) 300 mg PO BID ECTOR Stop: 08/19/22 20:59 Last Admin: 07/20/22 20:26 Dose: 300 mg Hydromorphone HCl (Hydromorphone Inj 0.5 Mg/0.5 Ml Syr) 0.5 mg IV Q3H PRN PRN Reason: MODERATE Pain (Scale 4,5,6) & Pre PT Stop: 08/03/22 16:37 Hydromorphone HCl (Hydromorphone Inj 1 Mg/Ml Syringe) 1 mg IV Q3H PRN PRN Reason: SEVERE Pain (Scale 7,8,9,10) Stop: 08/03/22 16:37 Last Admin: 07/20/22 16:53 Dose: 1 mg Hydroxyzine HCl (Hydroxyzine Hcl 25 Mg Tab) 50 mg PO HS [facility] Stop: 08/19/22 20:59 Last Admin: 07/20/22 20:27 Dose: 50 mg Hydroxyzine HCl (Hydroxyzine Hcl 25 Mg Tab) 25 mg PO Q8H PRN PRN Reason: Anxiety Stop: 08/19/22 16:37 Promethazine HCl 12.5 mg/ (Sodium Chloride) 50.5 mls @ 202 mls/hr IV Q6H PRN PRN Reason: Nausea &/or Vomiting Stop: 08/19/22 16:37 Acetaminophen (Ofirmev) 1,000 mg in 100 mls @ 400 mls/hr IV Q8H PRN PRN Reason: Pain Rating 1-3 & Pre PT Stop: 07/21/22 16:38 Lorazepam 0.5 mg/ Syringe 0.5 mls @ 2 mls/min IV Q8H PRN PRN Reason: Sedation/Anxiety Stop: 08/19/22 16:37 Dexamethasone 6 mg/ Syringe 1.5 mls @ 1 mls/min IV DAILY ECTOR Stop: 07/23/22 09:02 Levothyroxine Sodium (Levothyroxine Sodium 25 Mcg Tablet) 25 mcg PO DAILYBB [facility] Stop: 08/20/22 06:29 Last Admin: 07/21/22 06:10 Dose: 25 mcg Lorazepam (Lorazepam 0.5 Mg Tab) 0.5 mg PO Q8H PRN PRN Reason: Sedation/Anxiety Stop: 08/19/22 16:37 Magnesium Hydroxide (Magnesium Hydroxide Susp 30 Ml Udc) 30 ml PO Q24H PRN PRN Reason: Constipation Stop: 08/19/22 16:37 Metoclopramide HCl (Metoclopramide Hcl Inj 5 Mg/Ml 2 Ml Vial) 10 mg IV Q6H PRN PRN Reason: Nausea &/or Vomiting Stop: 08/19/22 16:37 Miscellaneous (Brittney D: Order Awaiting Action) 1 each N/A QS [facility] Stop: 08/20/22 00:00 Last Admin: 07/21/22 07:12 Dose: Not Given Miscellaneous Medication (Medical Marijuana) 1 dose PO UD [facility] Stop: 08/19/22 16:59 Miscellaneous Medication (Medical Marijuana) 1 dose PO Q24H ECTOR Stop: 08/19/22 19:44 Last Admin: 07/20/22 20:20 Dose: 1 dose Naloxone HCl (Naloxone Hcl 0.4 Mg/1 Ml Vial/Carp) 0.1 mg IV Q5M PRN PRN Reason: Oversedation/Resp depression Stop: 08/19/22 16:37 Ondansetron HCl (Ondansetron Inj 2 Mg/Ml 2 Ml Vial) 4 mg IV Q6H PRN PRN Reason: Nausea &/or Vomiting Stop: 08/19/22 16:37 Ondansetron HCl (Ondansetron 4 Mg Od Tab) 4 mg PO Q6H PRN PRN Reason: Nausea Stop: 08/19/22 16:37 Oxycodone HCl (Oxycodone Hcl Ir 5 Mg Tab (Immediate Release)) 5 - 10 mg PO Q4H PRN PRN Reason: Pain & Pre PT Stop: 08/03/22 16:37 Polyethylene Glycol (Polyethylene (Miralax) 17 Gm Pack) 17 gm PO Q6 [facility] Stop: 08/20/22 05:59 Last Admin: 07/21/22 06:09 Dose: Not Given Ropinirole HCl (Ropinirole Hcl 2 Mg Tablet) 2 mg PO HS [facility] Stop: 08/19/22 20:59 Last Admin: 07/20/22 20:27 Dose: 2 mg Senna/Docusate Sodium (Docusate Sodium/Senna 50/8.6mg Tab) 2 tab PO HS [facility] Stop: 08/19/22 20:59 Last Admin: 07/20/22 20:24 Dose: 2 tab Simvastatin (Simvastatin 40 Mg Tab) 40 mg PO QAM [facility] Stop: 08/20/22 08:59 Sodium Biphosphate/Sodium Phosphate (Sod Phosphate/Sod Biphosphate Enema 132 Ml Btl) 132 ml WI ONE PRN PRN Reason: Constipation Stop: 08/19/22 16:37 Sucralfate (Sucralfate 1 Gm Tab) 1 gm PO BID ECTOR Stop: 08/19/22 20:59 Last Admin: 07/20/22 20:27 Dose: 1 gm Trazodone HCl (Trazodone Hcl 50 Mg Tab) 50 mg PO [facility] Stop: 08/19/22 20:59 Last Admin: 07/20/22 20:25 Dose: 50 mg
[2022-07-21] MEDS: GABAPENTIN 300 MG CAP PO SCH ×2 (08:54→20:17)
[2022-07-21] MEDS: EZETIMIBE 10 MG TABLET PO SCH (08:54)
[2022-07-21] MEDS: SUCRALFATE 1 GM TAB PO SCH ×2 (08:54→20:18)
[2022-07-21] MEDS: SIMVASTATIN 40 MG TAB PO SCH (08:54)
[2022-07-21] MEDS: dexAMETHasone 6 MG in SYRINGE 0 ML IV SCH (08:54)
[2022-07-21] MEDS: DULoxetine HCL 60 MG CAP PO SCH ×2 (08:55→20:15)
[2022-07-21] MEDS: busPIRone 15 MG TAB PO SCH ×2 (08:55→20:15)
[2022-07-21] MEDS ORDERED: amLODIPine BESYLATE 5 MG TAB PO SCH (09:00)
[2022-07-21] MEDS ORDERED: hydroCHLOROthiazide 25 MG TAB PO SCH (09:00)
[2022-07-21] MEDS ORDERED: OLMESARTAN MEDOXOMIL 40 MG TAB PO SCH (09:00)
--- NOTE | 2022-07-21 09:02 | Orthopedic Progress Note ---
Date of Service July 21, 2022 Assessment & Plan (1) Neurogenic claudication due to lumbar spinal stenosis: Plan: This time we will initiate physical therapy monitor her TRENT output anticipate discharge home the next few days. Admission and Anticipated Discharge Date Admission Date: July 20, 2022 Subjective Back pain controlled leg symptoms markedly improved Physical Exam Physical Exam: Patient is good strength testing. Appears comfortable. Results & Data ([facility]) Vital Signs (Past 12 Hours) Vital Signs Temp Pulse Resp BP BP Pulse Ox O2 Del Method 07/21/22 07:27 36.7 C 76 16 96/59 L 96 Room Air 07/21/22 06:10 36.7 C 75 18 108/72 93 Room Air 07/21/22 03:03 36.6 C 80 17 105/53 L 95 Room Air 07/20/22 22:17 36.6 C 78 18 110/62 95 Room Air
[2022-07-21] MEDS ORDERED: amLODIPine BESYLATE 5 MG TAB PO ONE ×2 (11:50→14:49)
[2022-07-21] MEDS: OLMESARTAN MEDOXOMIL 40 MG TAB PO SCH (15:22)
[2022-07-21] MEDS: oxyCODONE HCL IR 5 MG TAB (IMMEDIATE RELEASE) PO PRN (17:39)
[2022-07-21] MEDS: MEDICAL MARIJUANA PO SCH (20:14)
[2022-07-21] MEDS: hydrOXYzine HCl 25 MG TAB PO SCH (20:16)
[2022-07-21] MEDS: rOPINIRole HCL 2 MG TABLET PO SCH (20:16)
[2022-07-21] MEDS: DOCUSATE SODIUM/SENNA 50/8.6MG TAB PO SCH (20:16)
[2022-07-21] MEDS: traZODone HCL 50 MG TAB PO SCH (20:17)
[2022-07-22] MEDS: POLYETHYLENE (MIRALAX) 17 GM PACK PO SCH ×4 (05:54→23:06)
[2022-07-22 05:55] LABS: Hematocrit (blood only) 24.8 % (34.1-44.9); Hemoglobin 8.3 g/dl (12.0-16.0); Mean Corpuscular Hemoglobin 30.5 pg (25.0-34.0); Mean Corpuscular Hgb Conc 33.5 g/dL (32.0-36.0); Mean Corpuscular Volume 91.2 fL (80.0-100.0); Mean Platelet Volume 9.5 fL (9.4-12.3); Platelet Count 268 K/uL (130-400); RDW Coefficient of Variation 13.6 % (11.5-14.5); RDW Standard Deviation 45.5 fL (36.4-46.3); Red Blood Count 2.72 M/uL (3.93-5.22); White Blood Count 14.27 K/ul (4.8-10.8)
[2022-07-22] MEDS: oxyCODONE HCL IR 5 MG TAB (IMMEDIATE RELEASE) PO PRN ×3 (06:09→20:29)
[2022-07-22 06:10] LABS: Calcium 8.4 mg/dl (8.5-10.1); Creatinine Clr Calc Pharmacy 58.1 ml/min; Est GFR (African American) 85.8 ml/min; Potassium 4.1 mmol/L (3.5-5.1)
[2022-07-22] MEDS: LEVOTHYROXINE SODIUM 25 MCG TABLET PO SCH (06:10)
--- NOTE | 2022-07-22 07:19 | Orthopedic Progress Note ---
Date of Service July 22, 2022 Assessment & Plan (1) Neurogenic claudication due to lumbar spinal stenosis: Plan: Patient is doing well postop day #2. We will continue to monitor her TRENT drainage. We will continue with physical therapy and Occupational Therapy. We will continue with GI and DVT prophylaxis as well as pain control measures. Anticipate discharge to home possibly tomorrow. Admission and Anticipated Discharge Date Admission Date: July 20, 2022 Subjective Patient is seen bedside in room 308. She states that she still has pain today however she has not taken any pain medication. She rested comfortably overnight. She does have mild pain in her legs. She has been up to walk. She denies any other numbness, tingling, paresthesias. Physical Exam Physical Exam: On exam she is alert and oriented. She answers questions appropriately. Her TRENT drain is intact and had 30 cc of drainage on the last shift. Her dressing is clean dry and intact. Her abdomen soft nontender calves are supple and nontender. Sensation and strength are both intact. Results & Data ([facility]) Vital Signs (Past 12 Hours) Vital Signs Temp Pulse Resp BP Pulse Ox O2 Del Method 07/21/22 22:14 36.6 C 73 16 134/70 97 Room Air
--- NOTE | 2022-07-22 08:11 | Hospitalist Progress Note ---
Date of Service July 22, 2022 Assessment & Plan (1) Neurogenic claudication due to lumbar spinal stenosis: Plan: (1) Neurogenic claudication due to lumbar spinal stenosis: - Pain management, bowel regimen and DVT ppx per the primary team - PT/OT consults, pt is planning on outpatient therapy Acute on chronic anemia Acute blood loss anemia vs. dilutional expected, currently no symptoms of anemia, cont. to closely monitor Pre-op Hgb ~11, now down to 8.3 (stable from yesterday though) (2) Hypertension: - Hold HCTZ -resumed amlodipine and olmesartan - cont. to monitor BP (3) Hyperlipidemia: - Continue simvastatin 40 mg daily (4) Hypothyroidism: - Cont levothyroxine (5) Obesity (BMI 30.0-34.9): - BMI of 30.1, counselling (6) Asthma: - Stable, chronic - encouraged cessation of marijuana use to improve asthma. Pt has used her albuterol inhaler today for breathing (7) Anxiety and depression: - May continue buspar prn for anxiety, cymbalta 60 mg BID, gabapentin 300 mg BID, and requip HS and hydroxyzine 50 mg HS - Hold inhalation of medical marijuana.Takes oral gummies DVT ppx: teds, scds, per primary team CODE: Full code Dispo: From home, discharge per the primary team Thank you for involving us in the care of Ms. Luis. At this time medicine service will follow along. Admission and Anticipated Discharge Date Admission Date: July 20, 2022 Subjective Pt seen in follow up of med. consult s/p lumbar surgery Currently laying in bed, in NAD at the bedside. Pt denies any fever chills, chest pain or shortness of breath, abdominal pain, nausea vomiting Pt reports walking in hallway. Review of Systems Review of Systems: All systems reviewed & are unremarkable except as noted in Subjective Physical Exam Physical Exam: General: awake, alert, no apparent distress, + appears older than stated age Head: Normocephalic, atraumatic ENT: PERRL, EOMI Chest: Diminished slightly throughout, but clear to auscultation, on room air Cardiac: Regular rate and rhythm, no murmur, no JVD Abdominal: NABS x 4 quadrants, soft, nondistended, nontender to palpation Back: dressing c/d/i, TRENT drain in place Extremities: Normal inspection, no peripheral edema or erythema, calves nontender to palpation Psych: Normal mood and affect Neuro: AAO x 3, strength intact bilaterally and rated 5/5, no motor deficits, speech is clear, no peripheral sensory deficits Results & Data Results & Data ([facility]) Vital Signs (Past 12 Hours) Vital Signs Temp Pulse Resp BP Pulse Ox O2 Del Method 07/21/22 22:14 36.6 C 73 16 134/70 97 Room Air Laboratory Results 07/22/22 07/22/22 Range/Units 05:24 05:24 WBC 14.27 H (4.8-10.8) K/ul RBC 2.72 L (3.93-5.22) M/uL Hgb 8.3 L (12.0-16.0) g/dl Hct 24.8 L (34.1-44.9) % MCV 91.2 (80.0-100.0) fL MCH 30.5 (25.0-34.0) pg MCHC 33.5 (32.0-36.0) g/dL RDW Std Deviation 45.5 (36.4-46.3) fL RDW Coeff of Deidre 13.6 (11.5-14.5) % Plt Count 268 (130-400) K/uL MPV 9.5 (9.4-12.3) fL Sodium 135 L (136-145) mmol/L Potassium 4.1 (3.5-5.1) mmol/L Chloride 102 (98-107) mmol/L Carbon Dioxide 29 (21-32) mmol/L Anion Gap 4 (3-11) BUN 18 (6-23) mg/dl Creatinine 0.82 (0.6-1.2) mg/dl Est Cr Clr Drug Dosing 58.1 ml/min Est GFR ( Amer) 85.8 ml/min Est GFR (Non-Af Amer) 74.0 ml/min BUN/Creatinine Ratio 22.0 H (10-20) Glucose 102 H (70-99(Fasting)) mg/dl Calcium 8.4 L (8.5-10.1) mg/dl Medications Administered Current Inpatient Medications Acetaminophen (Acetaminophen 500 Mg Tab) 1,000 mg PO Q8H PRN PRN Reason: MILD Pain Scale 1,2,3 & Pre PT Stop: 08/19/22 16:37 Al Hydrox/Mg Hydrox/Simethicone (Aluminum/Magnesium Susp 30 Ml Udc) 30 ml PO Q6H PRN PRN Reason: Dyspepsia Stop: 08/19/22 16:37 Amlodipine Besylate (Amlodipine Besylate 5 Mg Tab) 10 mg PO QAM [facility] Stop: 08/21/22 08:59 Bisacodyl (Bisacodyl 10 Mg Supp) 10 mg [place] DAILY PRN PRN Reason: Constipation Stop: 08/19/22 16:37 Buspirone HCl (Buspirone 15 Mg Tab) 30 mg PO BID [facility] Stop: 08/19/22 20:59 Last Admin: 07/21/22 20:15 Dose: 30 mg Cyanocobalamin (Cyanocobalamin 1000 Mcg/Ml Vial) 1,000 mcg IM Q30D [facility] Stop: 09/17/22 16:37 Diphenhydramine HCl (Diphenhydramine Capsule 25 Mg Cap) 25 mg PO Q6H PRN PRN Reason: Allergic Rhinitis/Insomnia Stop: 08/19/22 16:37 Duloxetine HCl (Duloxetine Hcl 60 Mg Cap) 60 mg PO BID [facility] Stop: 08/19/22 20:59 Last Admin: 07/21/22 20:15 Dose: 60 mg Ezetimibe (Ezetimibe 10 Mg Tablet) 10 mg PO QAM [facility] Stop: 08/20/22 08:59 Last Admin: 07/21/22 08:54 Dose: 10 mg Famotidine (Famotidine 20 Mg Tab) 20 mg PO Q12H PRN PRN Reason: Dyspepsia Stop: 08/19/22 16:37 Gabapentin (Gabapentin 300 Mg Cap) 300 mg PO BID [facility] Stop: 08/19/22 20:59 Last Admin: 07/21/22 20:17 Dose: 300 mg Hydromorphone HCl (Hydromorphone Inj 0.5 Mg/0.5 Ml Syr) 0.5 mg IV Q3H PRN PRN Reason: MODERATE Pain (Scale 4,5,6) & Pre PT Stop: 08/03/22 16:37 Hydromorphone HCl (Hydromorphone Inj 1 Mg/Ml Syringe) 1 mg IV Q3H PRN PRN Reason: SEVERE Pain (Scale 7,8,9,10) Stop: 08/03/22 16:37 Last Admin: 07/20/22 16:53 Dose: 1 mg Hydroxyzine HCl (Hydroxyzine Hcl 25 Mg Tab) 50 mg PO HS [facility] Stop: 08/19/22 20:59 Last Admin: 07/21/22 20:16 Dose: 50 mg Hydroxyzine HCl (Hydroxyzine Hcl 25 Mg Tab) 25 mg PO Q8H PRN PRN Reason: Anxiety Stop: 08/19/22 16:37 Promethazine HCl 12.5 mg/ (Sodium Chloride) 50.5 mls @ 202 mls/hr IV Q6H PRN PRN Reason: Nausea &/or Vomiting Stop: 08/19/22 16:37 Lorazepam 0.5 mg/ Syringe 0.5 mls @ 2 mls/min IV Q8H PRN PRN Reason: Sedation/Anxiety Stop: 08/19/22 16:37 Dexamethasone 6 mg/ Syringe 1.5 mls @ 1 mls/min IV DAILY [facility] Stop: 07/23/22 09:02 Last Admin: 07/21/22 08:54 Dose: 1 mls/min Levothyroxine Sodium (Levothyroxine Sodium 25 Mcg Tablet) 25 mcg PO DAILYBB [facility] Stop: 08/20/22 06:29 Last Admin: 07/22/22 06:10 Dose: 25 mcg Lorazepam (Lorazepam 0.5 Mg Tab) 0.5 mg PO Q8H PRN PRN Reason: Sedation/Anxiety Stop: 08/19/22 16:37 Magnesium Hydroxide (Magnesium Hydroxide Susp 30 Ml Udc) 30 ml PO Q24H PRN PRN Reason: Constipation Stop: 08/19/22 16:37 Metoclopramide HCl (Metoclopramide Hcl Inj 5 Mg/Ml 2 Ml Vial) 10 mg IV Q6H PRN PRN Reason: Nausea &/or Vomiting Stop: 08/19/22 16:37 Miscellaneous (Brittney D: Order Awaiting Action) 1 each N/A QS [facility] Stop: 08/20/22 00:00 Last Admin: 07/21/22 23:03 Dose: Not Given Miscellaneous Medication (Medical Marijuana) 1 dose PO UD [facility] Stop: 08/19/22 16:59 Miscellaneous Medication (Medical Marijuana) 1 dose PO Q24H [facility] Stop: 08/19/22 19:44 Last Admin: 07/21/22 20:14 Dose: Not Given Naloxone HCl (Naloxone Hcl 0.4 Mg/1 Ml Vial/Carp) 0.1 mg IV Q5M PRN PRN Reason: Oversedation/Resp depression Stop: 08/19/22 16:37 Olmesartan (Olmesartan Medoxomil 40 Mg Tab) 40 mg PO QAM [facility] Stop: 08/20/22 15:14 Last Admin: 07/21/22 15:22 Dose: 40 mg Ondansetron HCl (Ondansetron Inj 2 Mg/Ml 2 Ml Vial) 4 mg IV Q6H PRN PRN Reason: Nausea &/or Vomiting Stop: 08/19/22 16:37 Ondansetron HCl (Ondansetron 4 Mg Od Tab) 4 mg PO Q6H PRN PRN Reason: Nausea Stop: 08/19/22 16:37 Oxycodone HCl (Oxycodone Hcl Ir 5 Mg Tab (Immediate Release)) 5 - 10 mg PO Q4H PRN PRN Reason: Pain & Pre PT Stop: 08/03/22 16:37 Last Admin: 07/22/22 06:09 Dose: 10 mg Polyethylene Glycol (Polyethylene (Miralax) 17 Gm Pack) 17 gm PO Q6 [facility] Stop: 08/20/22 05:59 Last Admin: 07/22/22 05:54 Dose: Not Given Ropinirole HCl (Ropinirole Hcl 2 Mg Tablet) 2 mg PO HS [facility] Stop: 08/19/22 20:59 Last Admin: 07/21/22 20:16 Dose: 2 mg Senna/Docusate Sodium (Docusate Sodium/Senna 50/8.6mg Tab) 2 tab PO HS [facility] Stop: 08/19/22 20:59 Last Admin: 07/21/22 20:16 Dose: 2 tab Simvastatin (Simvastatin 40 Mg Tab) 40 mg PO QAM [facility] Stop: 08/20/22 08:59 Last Admin: 07/21/22 08:54 Dose: 40 mg Sodium Biphosphate/Sodium Phosphate (Sod Phosphate/Sod Biphosphate Enema 132 Ml Btl) 132 ml [place] ONE PRN PRN Reason: Constipation Stop: 08/19/22 16:37 Sucralfate (Sucralfate 1 Gm Tab) 1 gm PO BID [facility] Stop: 08/19/22 20:59 Last Admin: 07/21/22 20:18 Dose: 1 gm Trazodone HCl (Trazodone Hcl 50 Mg Tab) 50 mg PO HS [facility] Stop: 08/19/22 20:59 Last Admin: 07/21/22 20:17 Dose: 50 mg
[2022-07-22] MEDS: busPIRone 15 MG TAB PO SCH ×2 (09:17→20:30)
[2022-07-22] MEDS: SIMVASTATIN 40 MG TAB PO SCH (09:17)
[2022-07-22] MEDS: GABAPENTIN 300 MG CAP PO SCH ×2 (09:18→20:31)
[2022-07-22] MEDS: DULoxetine HCL 60 MG CAP PO SCH ×2 (09:18→20:30)
[2022-07-22] MEDS: EZETIMIBE 10 MG TABLET PO SCH (09:18)
[2022-07-22] MEDS: SUCRALFATE 1 GM TAB PO SCH ×2 (09:18→20:32)
[2022-07-22] MEDS: amLODIPine BESYLATE 5 MG TAB PO SCH (09:25)
[2022-07-22] MEDS: dexAMETHasone 6 MG in SYRINGE 0 ML IV SCH (09:25)
[2022-07-22] MEDS: OLMESARTAN MEDOXOMIL 40 MG TAB PO SCH (11:16)
[2022-07-22] MEDS: MEDICAL MARIJUANA PO SCH (20:28)
[2022-07-22] MEDS: DOCUSATE SODIUM/SENNA 50/8.6MG TAB PO SCH (20:28)
[2022-07-22] MEDS: rOPINIRole HCL 2 MG TABLET PO SCH (20:29)
[2022-07-22] MEDS: hydrOXYzine HCl 25 MG TAB PO SCH (20:31)
[2022-07-22] MEDS: traZODone HCL 50 MG TAB PO SCH (20:31)
[2022-07-23] MEDS: POLYETHYLENE (MIRALAX) 17 GM PACK PO SCH (05:09)
[2022-07-23] MEDS: LEVOTHYROXINE SODIUM 25 MCG TABLET PO SCH (05:54)
[2022-07-23] MEDS: oxyCODONE HCL IR 5 MG TAB (IMMEDIATE RELEASE) PO PRN (05:55)
[2022-07-23 06:35] LABS: Hematocrit (blood only) 25.1 % (34.1-44.9); Hemoglobin 8.5 g/dl (12.0-16.0); Mean Corpuscular Hgb Conc 33.9 g/dL (32.0-36.0); Mean Corpuscular Volume 88.7 fL (80.0-100.0); Mean Platelet Volume 9.7 fL (9.4-12.3); Platelet Count 299 K/uL (130-400); RDW Coefficient of Variation 13.3 % (11.5-14.5); RDW Standard Deviation 43.4 fL (36.4-46.3); Red Blood Count 2.83 M/uL (3.93-5.22)
[2022-07-23 06:57] LABS: BUN Creatinine Ratio 21.8 (10-20); Calcium 8.4 mg/dl (8.5-10.1); Creatinine Clr Calc Pharmacy 54.7 ml/min; Est GFR (African American) 79.9 ml/min; Est GFR (Non-African American) 68.9 ml/min; Magnesium 1.8 mg/dl (1.7-2.4); Phosphorus 2.8 mg/dl (2.5-4.9); Potassium 3.9 mmol/L (3.5-5.1)
[2022-07-23] MEDS: EZETIMIBE 10 MG TABLET PO SCH (08:04)
[2022-07-23] MEDS: GABAPENTIN 300 MG CAP PO SCH (08:04)
[2022-07-23] MEDS: SIMVASTATIN 40 MG TAB PO SCH (08:04)
[2022-07-23] MEDS: OLMESARTAN MEDOXOMIL 40 MG TAB PO SCH (08:04)
[2022-07-23] MEDS: SUCRALFATE 1 GM TAB PO SCH (08:04)
[2022-07-23] MEDS: dexAMETHasone 6 MG in SYRINGE 0 ML IV SCH (08:04)
[2022-07-23] MEDS: DULoxetine HCL 60 MG CAP PO SCH (08:04)
[2022-07-23] MEDS: amLODIPine BESYLATE 5 MG TAB PO SCH (08:04)
[2022-07-23] MEDS: busPIRone 15 MG TAB PO SCH (08:04)
--- NOTE | 2022-07-23 08:07 | Hospitalist Progress Note ---
Date of Service July 23, 2022 Assessment & Plan (1) Neurogenic claudication due to lumbar spinal stenosis: Plan: (1) Neurogenic claudication due to lumbar spinal stenosis: - Pain management, bowel regimen and DVT ppx per the primary team - PT/OT consults, pt is planning on outpatient therapy Acute on chronic anemia Acute blood loss anemia vs. dilutional expected, currently no symptoms of anemia, cont. to closely monitor Pre-op Hgb ~11, now down to 8.5 (stable from yesterday though) (2) Hypertension: - Hold HCTZ -resumed amlodipine and olmesartan - cont. to monitor BP (3) Hyperlipidemia: - Continue simvastatin 40 mg daily (4) Hypothyroidism: - Cont levothyroxine (5) Obesity (BMI 30.0-34.9): - BMI of 30.1, counselling (6) Asthma: - Stable, chronic - encouraged cessation of marijuana use to improve asthma. Pt has used her albuterol inhaler today for breathing (7) Anxiety and depression: - May continue buspar prn for anxiety, cymbalta 60 mg BID, gabapentin 300 mg BID, and requip HS and hydroxyzine 50 mg HS - Hold inhalation of medical marijuana.Takes oral gummies DVT ppx: teds, scds, per primary team CODE: Full code Dispo: From home, discharge per the primary team Thank you for involving us in the care of Ms. Luis. At this time medicine service will follow along. Admission and Anticipated Discharge Date Admission Date: July 20, 2022 Subjective Pt seen in follow up of med. consult s/p lumbar surgery Currently laying in bed, in NAD Pt denies any fever chills, chest pain or shortness of breath, abdominal pain, nausea vomiting Pt reports walking in hallway. Review of Systems Review of Systems: All systems reviewed & are unremarkable except as noted in Subjective Physical Exam Physical Exam: General: awake, alert, no apparent distress, + appears older than stated age Head: Normocephalic, atraumatic ENT: PERRL, EOMI Chest: Diminished slightly throughout, but clear to auscultation, on room air Cardiac: Regular rate and rhythm, no murmur, no JVD Abdominal: NABS x 4 quadrants, soft, nondistended, nontender to palpation Back: dressing c/d/i, TRENT drain in place Extremities: Normal inspection, no peripheral edema or erythema, calves nontender to palpation Psych: Normal mood and affect Neuro: AAO x 3, strength intact bilaterally and rated 5/5, no motor deficits, speech is clear, no peripheral sensory deficits Results & Data Results & Data ([facility]) Vital Signs (Past 12 Hours) Vital Signs Temp Pulse Pulse Resp BP BP Pulse Ox 07/23/22 07:42 36.7 C 65 14 122/56 L 98 07/22/22 22:08 36.8 C 58 L 16 127/61 96 O2 Del Method 07/23/22 07:42 Room Air 07/22/22 22:08 Room Air Laboratory Results 07/23/22 07/23/22 07/21/22 Range/Units 06:01 06:01 05:58 WBC 12.50 H (4.8-10.8) K/ul RBC 2.83 L (3.93-5.22) M/uL Hgb 8.5 L (12.0-16.0) g/dl Hct 25.1 L (34.1-44.9) % MCV 88.7 (80.0-100.0) fL MCH 30.0 (25.0-34.0) pg MCHC 33.9 (32.0-36.0) g/dL RDW Std Deviation 43.4 (36.4-46.3) fL RDW Coeff of Deidre 13.3 (11.5-14.5) % Plt Count 299 (130-400) K/uL MPV 9.7 (9.4-12.3) fL Sodium 135 L (136-145) mmol/L Potassium 3.9 (3.5-5.1) mmol/L Chloride 101 (98-107) mmol/L Carbon Dioxide 29 (21-32) mmol/L Anion Gap 5 (3-11) BUN 19 (6-23) mg/dl Creatinine 0.87 (0.6-1.2) mg/dl Est Cr Clr Drug Dosing 54.7 ml/min Est GFR ( Amer) 79.9 ml/min Est GFR (Non-Af Amer) 68.9 ml/min BUN/Creatinine Ratio 21.8 H (10-20) Glucose 100 H (70-99(Fasting)) mg/dl Calcium 8.4 L (8.5-10.1) mg/dl Phosphorus 2.8 (2.5-4.9) mg/dl Magnesium 1.8 (1.7-2.4) mg/dl Hepatitis C Ab (EIA) NON-REACTIVE (NON-REACTIVE) Hep C Ab Signal/Cutoff <0.02 (<1.00) Crossmatch 07/20/22 Range/Units 11:21 WBC (4.8-10.8) K/ul RBC (3.93-5.22) M/uL Hgb (12.0-16.0) g/dl Hct (34.1-44.9) % MCV (80.0-100.0) fL MCH (25.0-34.0) pg MCHC (32.0-36.0) g/dL RDW Std Deviation (36.4-46.3) fL RDW Coeff of Deidre (11.5-14.5) % Plt Count (130-400) K/uL MPV (9.4-12.3) fL Sodium (136-145) mmol/L Potassium (3.5-5.1) mmol/L Chloride (98-107) mmol/L Carbon Dioxide (21-32) mmol/L Anion Gap (3-11) BUN (6-23) mg/dl Creatinine (0.6-1.2) mg/dl Est Cr Clr Drug Dosing ml/min Est GFR ( Amer) ml/min Est GFR (Non-Af Amer) ml/min BUN/Creatinine Ratio (10-20) Glucose (70-99(Fasting)) mg/dl Calcium (8.5-10.1) mg/dl Phosphorus (2.5-4.9) mg/dl Magnesium (1.7-2.4) mg/dl Hepatitis C Ab (EIA) (NON-REACTIVE) Hep C Ab Signal/Cutoff (<1.00) Crossmatch See Detail Medications Administered Current Inpatient Medications Acetaminophen (Acetaminophen 500 Mg Tab) 1,000 mg PO Q8H PRN PRN Reason: MILD Pain Scale 1,2,3 & Pre PT Stop: 08/19/22 16:37 Al Hydrox/Mg Hydrox/Simethicone (Aluminum/Magnesium Susp 30 Ml Udc) 30 ml PO Q6H PRN PRN Reason: Dyspepsia Stop: 08/19/22 16:37 Amlodipine Besylate (Amlodipine Besylate 5 Mg Tab) 10 mg PO QAM [facility] Stop: 08/21/22 08:59 Last Admin: 07/23/22 08:04 Dose: 10 mg Bisacodyl (Bisacodyl 10 Mg Supp) 10 mg [place] DAILY PRN PRN Reason: Constipation Stop: 08/19/22 16:37 Buspirone HCl (Buspirone 15 Mg Tab) 30 mg PO BID [facility] Stop: 08/19/22 20:59 Last Admin: 07/23/22 08:04 Dose: 30 mg Cyanocobalamin (Cyanocobalamin 1000 Mcg/Ml Vial) 1,000 mcg IM Q30D [facility] Stop: 09/17/22 16:37 Diphenhydramine HCl (Diphenhydramine Capsule 25 Mg Cap) 25 mg PO Q6H PRN PRN Reason: Allergic Rhinitis/Insomnia Stop: 08/19/22 16:37 Duloxetine HCl (Duloxetine Hcl 60 Mg Cap) 60 mg PO BID [facility] Stop: 08/19/22 20:59 Last Admin: 07/23/22 08:04 Dose: 60 mg Ezetimibe (Ezetimibe 10 Mg Tablet) 10 mg PO QAM [facility] Stop: 08/20/22 08:59 Last Admin: 07/23/22 08:04 Dose: 10 mg Famotidine (Famotidine 20 Mg Tab) 20 mg PO Q12H PRN PRN Reason: Dyspepsia Stop: 08/19/22 16:37 Gabapentin (Gabapentin 300 Mg Cap) 300 mg PO BID [facility] Stop: 08/19/22 20:59 Last Admin: 07/23/22 08:04 Dose: 300 mg Hydromorphone HCl (Hydromorphone Inj 0.5 Mg/0.5 Ml Syr) 0.5 mg IV Q3H PRN PRN Reason: MODERATE Pain (Scale 4,5,6) & Pre PT Stop: 08/03/22 16:37 Hydromorphone HCl (Hydromorphone Inj 1 Mg/Ml Syringe) 1 mg IV Q3H PRN PRN Reason: SEVERE Pain (Scale 7,8,9,10) Stop: 08/03/22 16:37 Last Admin: 07/20/22 16:53 Dose: 1 mg Hydroxyzine HCl (Hydroxyzine Hcl 25 Mg Tab) 50 mg PO HS [facility] Stop: 08/19/22 20:59 Last Admin: 07/22/22 20:31 Dose: 50 mg Hydroxyzine HCl (Hydroxyzine Hcl 25 Mg Tab) 25 mg PO Q8H PRN PRN Reason: Anxiety Stop: 08/19/22 16:37 Promethazine HCl 12.5 mg/ (Sodium Chloride) 50.5 mls @ 202 mls/hr IV Q6H PRN PRN Reason: Nausea &/or Vomiting Stop: 08/19/22 16:37 Lorazepam 0.5 mg/ Syringe 0.5 mls @ 2 mls/min IV Q8H PRN PRN Reason: Sedation/Anxiety Stop: 08/19/22 16:37 Dexamethasone 6 mg/ Syringe 1.5 mls @ 1 mls/min IV DAILY [facility] Stop: 07/23/22 09:02 Last Admin: 07/23/22 08:04 Dose: 1 mls/min Levothyroxine Sodium (Levothyroxine Sodium 25 Mcg Tablet) 25 mcg PO DAILYBB [facility] Stop: 08/20/22 06:29 Last Admin: 07/23/22 05:54 Dose: 25 mcg Lorazepam (Lorazepam 0.5 Mg Tab) 0.5 mg PO Q8H PRN PRN Reason: Sedation/Anxiety Stop: 08/19/22 16:37 Magnesium Hydroxide (Magnesium Hydroxide Susp 30 Ml Udc) 30 ml PO Q24H PRN PRN Reason: Constipation Stop: 08/19/22 16:37 Metoclopramide HCl (Metoclopramide Hcl Inj 5 Mg/Ml 2 Ml Vial) 10 mg IV Q6H PRN PRN Reason: Nausea &/or Vomiting Stop: 08/19/22 16:37 Miscellaneous (Brittney D: Order Awaiting Action) 1 each N/A QS [facility] Stop: 08/20/22 00:00 Last Admin: 07/23/22 07:57 Dose: Not Given Miscellaneous Medication (Medical Marijuana) 1 dose PO UD [facility] Stop: 08/19/22 16:59 Miscellaneous Medication (Medical Marijuana) 1 dose PO Q24H [facility] Stop: 08/19/22 19:44 Last Admin: 07/22/22 20:28 Dose: Not Given Naloxone HCl (Naloxone Hcl 0.4 Mg/1 Ml Vial/Carp) 0.1 mg IV Q5M PRN PRN Reason: Oversedation/Resp depression Stop: 08/19/22 16:37 Olmesartan (Olmesartan Medoxomil 40 Mg Tab) 40 mg PO QAM [facility] Stop: 08/20/22 15:14 Last Admin: 07/23/22 08:04 Dose: 40 mg Ondansetron HCl (Ondansetron Inj 2 Mg/Ml 2 Ml Vial) 4 mg IV Q6H PRN PRN Reason: Nausea &/or Vomiting Stop: 08/19/22 16:37 Ondansetron HCl (Ondansetron 4 Mg Od Tab) 4 mg PO Q6H PRN PRN Reason: Nausea Stop: 08/19/22 16:37 Oxycodone HCl (Oxycodone Hcl Ir 5 Mg Tab (Immediate Release)) 5 - 10 mg PO Q4H PRN PRN Reason: Pain & Pre PT Stop: 08/03/22 16:37 Last Admin: 07/23/22 05:55 Dose: 10 mg Polyethylene Glycol (Polyethylene (Miralax) 17 Gm Pack) 17 gm PO Q6 [facility] Stop: 08/20/22 05:59 Last Admin: 07/23/22 05:09 Dose: Not Given Ropinirole HCl (Ropinirole Hcl 2 Mg Tablet) 2 mg PO HS [facility] Stop: 08/19/22 20:59 Last Admin: 07/22/22 20:29 Dose: 2 mg Senna/Docusate Sodium (Docusate Sodium/Senna 50/8.6mg Tab) 2 tab PO [facility] Stop: 08/19/22 20:59 Last Admin: 07/22/22 20:28 Dose: 2 tab Simvastatin (Simvastatin 40 Mg Tab) 40 mg PO QAM [facility] Stop: 08/20/22 08:59 Last Admin: 07/23/22 08:04 Dose: 40 mg Sodium Biphosphate/Sodium Phosphate (Sod Phosphate/Sod Biphosphate Enema 132 Ml Btl) 132 ml [place] ONE PRN PRN Reason: Constipation Stop: 08/19/22 16:37 Sucralfate (Sucralfate 1 Gm Tab) 1 gm PO BID [facility] Stop: 08/19/22 20:59 Last Admin: 07/23/22 08:04 Dose: 1 gm Trazodone HCl (Trazodone Hcl 50 Mg Tab) 50 mg PO HS [facility] Stop: 08/19/22 20:59 Last Admin: 07/22/22 20:31 Dose: 50 mg
--- NOTE | 2022-07-23 10:13 | Discharge Summary ---
Date of Service July 23, 2022 Admission HPI Per Admitting Provider This is a 66-year-old female presents with chronic persistent back and bilateral leg pain. Failing extensive course of nonoperative care she is here for surgical invention. Principal Diagnosis Lumbar spinal stenosis with neurogenic claudication Discharge Data Allergies Allergy/AdvReac Type Severity Reaction Status Date / Time latex Allergy Unknown Rash Verified 07/04/22 14:02 Penicillins Allergy Unknown Unknown Verified 07/06/22 12:04 pollen extracts Allergy Unknown Watery Verified 07/06/22 12:04 eyes, sneezing Consultations 07/20/22 16:38 Consult Hospitalist Routine Procedures Performed Operation Date: 07/20/22 12:35 Actual Procedures p L4-S1 Decompression and Fusion, L3-4 Hardware Removal Spinal Cord Monitoring(Not Applicable) - Jayson Bailey DO Ordered Studies 07/20/22 12:35 FL lumbar spine 2-3V Routine Hospital Course (1) Neurogenic claudication due to lumbar spinal stenosis: Patient with lumbar decompression fusion tolerated this well was taken to orthopedic for postoperative progress. She was up ambulating post postop day 2 and 3. She progressed appropriately strength testing potential discharge home per discharge orders and instructions from the chart for further care. Total Time Total Time Spent Total Time Spent (In Minutes): 20 minutes Discharge Plan Discharge Items Patient Disposition: Home - Self-Care Reason For Visit: Spondylolisthesis, Lumbar Region Discharge Diagnosis: Lumbar spinal stenosis with neurogenic claudication Activity: As commented below Non-emergency contact: Primary Care Provider Call non-emergency contact if: you have any medication questions Follow-up/Referrals: Jayson Bailey DO [Primary Care Provider] - Diet: Regular Addtl Attending Provider Instructions: ACTIVITY RECOMMENDATIONS: SELF CARE INSTRUCTIONS AFTER THORACIC/LUMBAR FUSIONS 1. You may walk to your tolerance. It is good exercise for your legs and back. Expect some back and intermittent leg aches and pains. 2. You may perform "counter-top" level activities (make a sandwich, josh with a project, etc.). 3. No bending or lifting of more than 10 pounds or back twisting of any nature (roll like a log when turning in bed). 4. You may ride in a car for 20-30 minutes at a time. No driving until after your first visit with your doctor. 5. Frequent changes of position and restricting sitting to 30 minutes at a time will help limit the amount of back spasms and stiffness you may experience. 6. You may discontinue the use of ambulatory aids (cane, crutches, etc.) once your strength and confidence allow. 7. You may radio installer the shower and let water strike your incision when you arrive home at least once daily. Do not take a tub bath, sit in a hot tub or go into a swimming pool until after your first recheck in the office. SPECIAL CARE INSTRUCTIONS: VERY IMPORTANT TO READ AND REVIEW A. Your surgical incision has been closed with a cosmetic suture under the skin that will dissolve in about 6 weeks. In 14 days, you can use a pair of clean scissors and cut the suture that is left outside of the skin at the ends of your incision. 1. The small skin tapes can be removed 7 days after surgery if they have not fallen off by that point. 2. You may keep the wound open to air as much as possible to promote healing after post-op day number 5 unless told otherwise by your doctor. 3. If you think the wound looks like it is becoming infected (redness or worsening drainage) and/or you are experiencing fever, chill or worsening back pain and muscle spasms, contact the office so that we may evaluate you as soon as possible. B. Complications are uncommon, but please contact us if you have any signs or symptoms of: 1. wound infection (fever higher than 102.5 degrees F, redness, separation of wound, drainage, or increasing pain from the incision) 2. blood clots in legs (pain, swelling, redness and warmth in legs) 3. urinary tract infection (fever higher than 102.5 degrees F, burning upon urination or increased frequency of urination) 4. nerve problems (inability to walk on your toes or heels, numbness, loss of bowel or bladder control) 5. any other symptoms that concern you C. Please call the office at if you have any concerns or questions about your operation or recovery. D. No smoking! Smoking drastically decreases the chance of a solid fusion. E. Do not take any anti-inflammatory medications (Indocin, Advil, Motrin, Aspirin, Naprosyn, etc.) as these may inhibit the chance of a solid fusion. Tylenol is okay to take for pain. MANAGING PAIN AFTER SPINAL SURGERY 1. Narcotic medication is intended for short-term use and will be provided for surgical pain. Surgical pain usually lasts for a period of 4-6 weeks. Narcotic medication includes Percocet, Vicodin, Darvocet, Tylenol #3 or Lortab. 2. Longer-term pain is more appropriately treated with non-narcotic medication such as Tylenol ES. 3. Muscle spasm is not appropriately treated with narcotics. Muscle relaxers such as Soma, Flexeril or Skelaxin can be used along with Tylenol ES. 4. Remember that we all live with some "aches and pains". This is not unusual or uncommon after an injury or as we get older. a. Back pain is expected and may include muscle spasms for 4 to 6 weeks after surgery. The pain should gradually improve. If the pain worsens for no apparent reason, please contact the office. b. Intermittent leg pain may also be experienced and should not be concerned about unless it worsens for no apparent reason. If so, please contact the office. 5. We will provide appropriate medication within the normal guidelines of their prescribed use. We will also be very cautious and aware of potential abuse and extended duration of patients' medication needs. a. Pain medications are for your comfort and to assist with sleep and rest so that the tissue can heal. They are not provided in order to return to normal activity and should not be used through the day. To do so or worsening pain at night can result from ongoing tissue damage and development of tolerance to the prescribed medicine. 6. Please allow 2-3 days to process refills. Prescriptions will not be mailed but must be picked up at the office. FOLLOW UP VISIT: Keep your scheduled follow-up appointment. Any questions, please call the office at . 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 However, you should monitor your blood pressure at home and discuss with your primary care doctor in the next couple of days, if your medication- hydrochlorothiazide should be resumed. Pending Studies at Discharge: No Stand-Alone Forms: [employer], Smoking Cessation Medications and DC Order Prescriptions: New tramadol 50 mg tablet 50 mg PO Q6H PRN (Reason: pain, moderate) Qty: 30 0RF oxycodone 5 mg tablet 5 mg PO Q6H PRN (Reason: pain, severe) Qty: 30 0RF Continued cyclobenzaprine 10 mg Tablet 10 mg PO HS trazodone 50 mg Tablet 50 mg PO HS sucralfate 1 gram Tablet 1 g PO BID hydroxyzine HCl 50 mg Tablet 50 mg PO HS acetaminophen 500 mg Tablet 500 mg PO BID simvastatin 40 mg Tablet 40 mg PO QAM levothyroxine [Synthroid] 25 mcg Tablet 25 mcg PO QAM oxycodone-acetaminophen [Percocet] 10-325 mg Tablet 1 tab PO Q6H PRN (Reason: Pain) amlodipine 10 mg Tablet 10 mg PO QAM cyanocobalamin (vitamin B-12) 1,000 mcg/mL Solution 1,000 mcg IM Q30D buspirone 30 mg Tablet 30 mg PO BID hydrochlorothiazide 25 mg Tablet 25 mg PO QAM albuterol sulfate 90 mcg/actuation Hfa Aerosol Inhaler 1 puff INHALATION Q4H PRN (Reason: Shortness Of Breath) olmesartan 40 mg Tablet 40 mg PO QAM ezetimibe 10 mg Tablet 10 mg PO QAM duloxetine [Cymbalta] 60 mg Capsule,Delayed Release(Dr/Ec) 60 mg PO BID fexofenadine-pseudoephedrine [Brittney-D 24 Hour] 180-240 mg Tablet Extended Release 24 Hr 1 tab PO QAM ropinirole 2 mg Tablet Extended Release 24 Hr 2 mg PO HS gabapentin 300 mg Tablet Extended Release 24 Hr 300 mg PO BID Medical Marijuana 1 ea PO UD Discharge Orders: Discharge Order (Routine); Ordered 07/23/22 Ordered By: Jayson Bailey Admission Data Admit Date/Time: 07/20/22 14:58 Attending Provider: Jayson Bailey Admit Provider: Jayson Bailey Primary Care Provider: Jayson Bailey Other Providers: Fouzia Monroy ; Marcelo Hastings
[2022-08-18] MEDS ORDERED: CYANOCOBALAMIN 1000 MCG/ML VIAL IM SCH (16:38)
== END 2022-07-23 11:51 | disposition home or self-care (01) | DRG 454 ==
LOC: ASU 10:57 → MERGE 12:20 → 3E 14:58

== ENCOUNTER 2023-01-17 05:24 | Observation (INO) ==
--- NOTE | 2022-12-25 11:04 | PAT Medication Instructions ---
Medication Instructions Date of Service December 25, 2022 Home Medications Medical Marijuana 1 ea PO UD acetaminophen 500 mg tablet 500 mg PO BID albuterol sulfate 90 mcg/actuation aerosol inhaler 1 puff inhalation Q4H PRN Shortness Of Breath amlodipine 10 mg tablet 10 mg PO QAM buspirone 30 mg tablet 30 mg PO BID cyanocobalamin (vitamin B-12) 1,000 mcg/mL injection solution 1,000 mcg IM Q30D cyclobenzaprine 10 mg tablet 10 mg PO HS] duloxetine 60 mg capsule,delayed release (Cymbalta) 60 mg PO BID ezetimibe 10 mg tablet 10 mg PO QAM fexofenadine-pseudoephedrine ER 180 mg-240 mg tablet,ext.release 24 hr (Brittney- D 24 Hour) 1 tab PO QAM gabapentin 300 mg tablet,extended release 24 hr 300 mg PO BID hydroxyzine HCl 50 mg tablet 50 mg PO HS levothyroxine 25 mcg tablet (Synthroid) 25 mcg PO QAM olmesartan 40 mg tablet 40 mg PO QAM ropinirole 2 mg tablet,extended release 24 hr 2 mg PO HS simvastatin 40 mg tablet 40 mg PO QAM sucralfate 1 gram tablet 1 g PO BID trazodone 50 mg tablet 50 mg PO HS hydrocodone 10 mg-acetaminophen 325 mg tablet 1 tab PO Q6H PRN Pain Continue as directed cyanocobalamin (vitamin B-12) 1,000 mcg/mL injection solution 1,000 mcg IM Q30D DO NOT take the morning of surgery Medical Marijuana 1 ea PO UD fexofenadine-pseudoephedrine ER 180 mg-240 mg tablet,ext.release 24 hr (Brittney- D 24 Hour) 1 tab PO QAM olmesartan 40 mg tablet 40 mg PO QAM sucralfate 1 gram tablet 1 g PO BID Take morning of surgery With a small sip of water, OTHERWISE NOTHING TO EAT OR DRINK AFTER MIDNIGHT: acetaminophen 500 mg tablet 500 mg PO BID albuterol sulfate 90 mcg/actuation aerosol inhaler 1 puff inhalation Q4H PRN Shortness Of Breath (use if needed; please bring with you to hospital day of surgery if possible) amlodipine 10 mg tablet 10 mg PO QAM buspirone 30 mg tablet 30 mg PO BID duloxetine 60 mg capsule,delayed release (Cymbalta) 60 mg PO BID ezetimibe 10 mg tablet 10 mg PO QAM gabapentin 300 mg tablet,extended release 24 hr 300 mg PO BID levothyroxine 25 mcg tablet (Synthroid) 25 mcg PO QAM simvastatin 40 mg tablet 40 mg PO QAM hydrocodone 10 mg-acetaminophen 325 mg tablet 1 tab PO Q6H PRN Pain (if needed) Take evening before surgery acetaminophen 500 mg tablet 500 mg PO BID albuterol sulfate 90 mcg/actuation aerosol inhaler 1 puff inhalation Q4H PRN Shortness Of Breath (if needed) buspirone 30 mg tablet 30 mg PO BID cyclobenzaprine 10 mg tablet 10 mg PO HS duloxetine 60 mg capsule,delayed release (Cymbalta) 60 mg PO BID gabapentin 300 mg tablet,extended release 24 hr 300 mg PO BID hydroxyzine HCl 50 mg tablet 50 mg PO HS ropinirole 2 mg tablet,extended release 24 hr 2 mg PO HS sucralfate 1 gram tablet 1 g PO BID trazodone 50 mg tablet 50 mg PO HS hydrocodone 10 mg-acetaminophen 325 mg tablet 1 tab PO Q6H PRN Pain (if needed) Other Notes If you have any questions please call us at [phone] or [phone] or [phone] or [phone]
--- NOTE | 2023-01-04 11:28 | Anesthesiology Consultation ---
Date of Service January 04, 2023 Assessment & Plan (1) Encounter for pre-operative examination: - COVID screening: Per assessment on 01/04: No known COVID-19 positive contacts or current COVID-19 related symptoms. Travel screen negative. Patient vaccinated. At surgeon discretion if preop Covid testing being done. - Outpatient joint assessment: Pt currently scheduled for inpatient pathway. With available information, patient does not appear to be good candidate for outpatient joint pathway (LE numbness/neuropathy). Can review further if review for outpatient joint pathway requested by surgeon. - S/P L4-S1 Decompression and fusion (07/20/22): MAC#3, ETT 7 at [facility] Chart Review Chart Review: Acceptable Risk for Surgery and Patient seen in Pre Admission Testing Teaching & Discussion Pre-Anesthesia Teaching/Discussion Notes: Instructed NPO after midnight before surgery,except medications with 15 cc of water. Medication instructions provided according to the PAT guidelines. History Surgery Operation Date: 01/16/23 09:45 Proposed Procedures p Right Total Knee Arthroplasty - Dash Lima MD Height/Weight Height: 5 ft Weight: 74 kg Allergies Allergy/AdvReac Type Severity Reaction Status Date / Time latex Allergy Mild Rash Verified 12/24/22 13:52 Penicillins Allergy Unknown Unknown Verified 12/24/22 13:52 pollen extracts Allergy Unknown Watery Verified 12/24/22 13:52 eyes, sneezing Medications Home Medications Medication Instructions Recorded Confirmed Last Taken Medical Marijuana 1 ea PO UD 07/04/22 12/24/22 07/19/22 23:55 acetaminophen 500 mg tablet 500 mg PO BID 07/04/22 12/24/22 Unknown albuterol sulfate 90 mcg/actuation 1 puff inhalation Q4H PRN 07/04/22 12/24/22 Unknown aerosol inhaler Shortness Of Breath amlodipine 10 mg tablet 10 mg PO QAM 07/04/22 12/24/22 07/19/22 07:00 buspirone 30 mg tablet 30 mg PO BID 07/04/22 12/24/22 07/19/22 18:30 cyanocobalamin (vitamin B-12) 1,000 mcg IM Q30D 07/04/22 12/24/22 07/19/22 07:00 1,000 mcg/mL injection solution cyclobenzaprine 10 mg tablet 10 mg PO HS 1012/24/22 07/19/22 18:30 duloxetine 60 mg capsule,delayed 60 mg PO BID 07/04/22 12/24/22 07/19/22 18:30 release (Cymbalta) ezetimibe 10 mg tablet 10 mg PO QAM 07/04/22 12/24/22 07/19/22 07:00 fexofenadine-pseudoephedrine ER 1 tab PO QAM 07/04/22 12/24/22 07/19/22 07:00 180 mg-240 mg tablet,ext.release 24 hr (Brittney-D 24 Hour) gabapentin 300 mg tablet,extended 300 mg PO BID 07/04/22 12/24/22 07/19/22 18:30 release 24 hr hydroxyzine HCl 50 mg tablet 50 mg PO HS 07/04/22 12/24/22 07/19/22 18:30 levothyroxine 25 mcg tablet 25 mcg PO QAM 07/04/22 12/24/22 07/19/22 07:00 (Synthroid) olmesartan 40 mg tablet 40 mg PO QAM 07/04/22 12/24/22 07/19/22 07:00 ropinirole 2 mg tablet,extended 2 mg PO HS 07/04/22 12/24/22 07/19/22 18:30 release 24 hr simvastatin 40 mg tablet 40 mg PO QAM 07/04/22 12/24/22 07/19/22 07:00 sucralfate 1 gram tablet 1 g PO BID 07/04/22 12/24/22 07/19/22 18:30 trazodone 50 mg tablet 50 mg PO HS 07/04/22 12/24/22 07/19/22 18:30 hydrocodone 10 mg-acetaminophen 1 tab PO Q6H PRN Pain 12/24/22 12/24/22 Unknown 325 mg tablet Past Medical History Medical History Anxiety and depression Asthma Stable History of anemia Remote blood transfusion History of chronic back pain History of numbness LEs History of restless legs syndrome Hyperlipidemia Hypertension Hypothyroidism Seizure Several years ago (felt to be r/t fentanyl patches), no issues since Exercise / Class Metabolic Activity III < 4 Walking/Shop/Light housework (one FS (no CP, occasional SOB)) Past Family History Family History Other No family history of adverse response to anesthesia Past Surgical History Surgical History History of bilateral tubal ligation History of colonoscopy History of dilation and curettage History of esophagogastroduodenoscopy (EGD) History of lumbar surgery Hx of appendectomy Hx of cataract extraction R/L Hx of cervical spine surgery ACDF Hx of colonoscopy Hx of LASIK Hx of oral surgery implants placed on lower jaw S/P epidural steroid injection S/P lumbar fusion L4-S1 Decompression and fusion (07/20/22): MAC#3, ETT 7 at [facility] Past Anesthesia History No Hx of Anesthesia Complications and No Family Hx of Anesthesia Complications History of PONV No Hx of PONV and No Hx of Motion Sickness Social History Smoking Status: Former smoker tobacco type: cigarettes Do You Dip or Chew Tobacco: No Smoking End Date: Quit 2000 Hx Alcohol Use: Yes alcohol intake frequency: holidays/special occasions only Hx Substance Use: Yes (Medical THC) substance use type: marijuana (Medical marijuana daily (vape)) Review of Systems Patient denies chest pain, shortness of breath, fever, chills, cough, wheezing, palpitations. Physical Exam Vital Signs VITALS BP 111/67 P 68 TEMP 98.4 SP02 98%RA RESP 16 PHYSICAL Full cervical extension range of motion. Full TMJ range of motion. TMD 4 finger breaths Mallampati Score 1 Dentition: full upper/lower dentures Lungs: clear throughout to auscultation Cardiac: regular rate and rhythm, no murmurs noted Spine: normal Carotid arteries: negative bruit Extremities: no LE edema Lab Results Anesthesia Preop Results Results Anesthesia Widget: WBC 7.37 K/ul (4.8-10.8) 01/04/23 Hgb 11.3 g/dl (12.0-16.0) L 01/04/23 Hct 34.2 % (37.0-47.0) L 01/04/23 Plt 402 K/uL (130-400) H 01/04/23 Na 139 mmol/L (136-145) 01/04/23 K 4.1 mmol/L (3.5-5.1) 01/04/23 Cl 104 mmol/L (98-107) 01/04/23 CO2 28 mmol/L (21-32) 01/04/23 BUN 16 mg/dl (6-23) 01/04/23 Creat 0.91 mg/dl (0.6-1.2) 01/04/23 Glucose Level 83 mg/dl (70-99(Fasting)) 01/04/23 PT 10.6 Seconds (9.0-12.0) 01/04/23 PTT 27.1 Seconds (21.0-31.0) 01/04/23 INR 1.0 (0.9-1.1) 01/04/23 Urine Color Yellow 01/04/23 Urine Appearance Clear (Clear) 01/04/23 Urine pH 6.0 (4.5-7.5) 01/04/23 Urine Specific Lingle 1.014 (1.000-1.030) 01/04/23 Urine Protein Negative (Negative) 01/04/23 Urine Glucose (UA) Negative (Negative) 01/04/23 Urine Ketones Negative (Negative) 01/04/23 Urine Blood Negative (Negative) 01/04/23 Urine Nitrite Positive (Negative) A 01/04/23 Urine Bilirubin Negative (Negative) 01/04/23 Urine Urobilinogen Negative (Negative) 01/04/23 Urine Leukocyte Esterase Negative (Negative) 01/04/23 Urine WBC (Auto) 1-5 /hpf (0-5) 01/04/23 Urine RBC (Auto) 0-4 /hpf (0-4) 01/04/23 Urine Hyaline Casts (Auto) 1-5 /lpf (0-5) 01/04/23 Urine Epithelial Cells (Auto) >30 /lpf (0-5) H 01/04/23 Urine Bacteria (Auto) 4+ (Negative) H 01/04/23 Blood Type O Positive 01/04/23 Antibody Screen NEGATIVE 01/04/23 Testing Laboratory Results Surgeon's office made aware of abnormal UA* Electrocardiogram Date: 07/06/22 NSR at 71bpm. Chest X-Ray Date: 07/06/22 FINDINGS: Posterior lumbar fixation hardware is seen. Degenerative changes are seen in the spine. The cardiomediastinal silhouette is normal. The lungs are clear. No evidence of pleural effusion or pneumothorax. IMPRESSION: No acute chest disease. Stress Test Date: 03/18/17 Type: nuclear No evidence of myocardial ischemia or infarction. LVEF 55%. Stress ECG without changes diagnostic for myocardial ischemia. COVID-19 Risk Screen Screening Information COVID-19 Screen Date: 01/04/23 Exposure 21 Days Family/Household +COVID Last 21 Days: No Exposure 10 Days Any COVID Exposure Last 10 Days: No Symptoms Last 10 Days Experienced COVID Sx Last 10 Days: No + COVID 0-90 Days COVID + in Last 0-90 Days: No
--- NOTE | 2023-01-16 19:10 | History & Physical Report ---
Date of Service January 16, 2023 Assessment & Plan (1) Primary osteoarthritis of right knee: Plan: Treatment options discussed with the patient. She would like to proceed with surgical intervention. Risks, benefits and alternatives to surgery including but not limited to infection, DVT, pain, stiffness, need for revision surgery, damage to blood vessels, damage to nerves, PE, , were discussed with the patient and they wish to proceed. Plan on right total knee arthroplasty scheduled for [facility] on 01/17/[address] Lima. Plan on aspirin 81mg BID for 1 mo post op for DVT prophylaxis. All questions answered. Patient will follow up post op. History of Present Illness Chief Complaint: Right knee pain Primary Care Provider: Jayson Bailey DO 67yo female with PMHx significant for asthma, HTN, hypothyroid who presents with ongoing right knee pain. Pain is interfering with her daily activity. She has failed conservative measures and would like to proceed with surgical intervention. Patient denies headaches, sweats, fevers, chills, double vision, blurred vision, cough, sore throat, dysphagia, chest pain, sob, wheezing, n/v/d/c, numbness, tingling, fatigue, urinary symptoms, mood disorders. ROS positive for right knee pain and stiffness. Allergies Allergy/AdvReac Type Severity Reaction Status Date / Time latex Allergy Mild Rash Verified 12/24/22 13:52 Penicillins Allergy Unknown Unknown Verified 12/24/22 13:52 pollen extracts Allergy Unknown Watery Verified 12/24/22 13:52 eyes, sneezing Home Medications Medication Instructions Recorded Confirmed Type Medical Marijuana 1 ea PO UD 07/04/22 12/24/22 History acetaminophen 500 mg tablet 500 mg PO BID 07/04/22 12/24/22 History albuterol sulfate 90 mcg/actuation 1 puff inhalation Q4H PRN 07/04/22 12/24/22 History aerosol inhaler Shortness Of Breath amlodipine 10 mg tablet 10 mg PO QAM 07/04/22 12/24/22 History buspirone 30 mg tablet 30 mg PO BID 07/04/22 12/24/22 History cyanocobalamin (vitamin B-12) 1,000 mcg IM Q30D 07/04/22 12/24/22 History 1,000 mcg/mL injection solution cyclobenzaprine 10 mg tablet 10 mg PO HS 07/04/22 12/24/22 History duloxetine 60 mg capsule,delayed 60 mg PO BID 07/04/22 12/24/22 History release (Cymbalta) ezetimibe 10 mg tablet 10 mg PO QAM 07/04/22 12/24/22 History fexofenadine-pseudoephedrine ER 1 tab PO QAM 07/04/22 12/24/22 History 180 mg-240 mg tablet,ext.release 24 hr (Brittney-D 24 Hour) gabapentin 300 mg tablet,extended 300 mg PO BID 07/04/22 12/24/22 History release 24 hr hydroxyzine HCl 50 mg tablet 50 mg PO HS 07/04/22 12/24/22 History levothyroxine 25 mcg tablet 25 mcg PO QAM 07/04/22 12/24/22 History (Synthroid) olmesartan 40 mg tablet 40 mg PO QAM 07/04/22 12/24/22 History ropinirole 2 mg tablet,extended 2 mg PO HS 07/04/22 12/24/22 History release 24 hr simvastatin 40 mg tablet 40 mg PO QAM 07/04/22 12/24/22 History sucralfate 1 gram tablet 1 g PO BID 07/04/22 12/24/22 History trazodone 50 mg tablet 50 mg PO HS 07/04/22 12/24/22 History hydrocodone 10 mg-acetaminophen 1 tab PO Q6H PRN Pain 12/24/22 12/24/22 History 325 mg tablet Past Med/Surg History Medical History Anxiety and depression Asthma Stable History of anemia Remote blood transfusion History of chronic back pain History of numbness LEs History of restless legs syndrome Hyperlipidemia Hypertension Hypothyroidism Seizure Several years ago (felt to be r/t fentanyl patches), no issues since Surgical History History of bilateral tubal ligation History of colonoscopy History of dilation and curettage History of esophagogastroduodenoscopy (EGD) History of lumbar surgery Hx of appendectomy Hx of cataract extraction R/L Hx of cervical spine surgery ACDF Hx of colonoscopy Hx of LASIK Hx of oral surgery implants placed on lower jaw S/P epidural steroid injection S/P lumbar fusion L4-S1 Decompression and fusion (07/20/22): MAC#3, ETT 7 at [facility] Family History Other No family history of adverse response to anesthesia Social History Smoking Status: Former smoker Second Hand Exposure: No; Do You Dip or Chew Tobacco: No; Hx Alcohol Use: Yes Hx Substance Use: Yes (Medical THC) Substance Use Type Other:: Medical marijuana daily Preferred Language: Gambian Communication Ability: Effective Bisque Ware Dipper Required: No Beliefs That Will Affect Care: None Current Living Situation: Spouse Feels Safe at Home: Yes Assistive Devices: Denture - Upper, Denture - Lower, Glasses and Other Review of Systems All systems reviewed & are unremarkable except as noted in HPI & below Physical Exam Constitutional: well developed and well nourished; no acute distress Eyes: PERRL, conjunctivae normal, anicteric sclerae ENMT: external ear and nose normal, oropharynx normal Neck: trachea midline, no thyromegaly Respiratory: normal respiratory effort, lungs clear to auscultation Cardiovascular: RRR, no murmur, no edema Musculoskeletal: Right knee: Valgus alignment, mild effusion. Lateral joint line tenderness. Amberly's is guarded. ROM 10-120 degrees. Stable to valgus and varus stress. Skin: no rashes, warm and dry Neurologic: patellar DTR's 2+ bilat, sensation intact Psychiatric: A+Ox3, euthymic affect Results & Data Diagnostic Findings Left knee radiographs: Valgus alignment. Endstage osteoarthritis, bone on bone lateral compartment. There is periarticular osteophytes. Bone loss lateral tibial plateau.
[2023-01-17] MEDS ORDERED: TRANEXAMIC ACID 1,000 MG **IV Intra-op IV SCH (06:00)
[2023-01-17] MEDS ORDERED: FAMOTIDINE 20 MG TAB PO SCH (06:00)
[2023-01-17] MEDS ORDERED: GABAPENTIN 300 MG CAP PO SCH (06:00)
[2023-01-17] MEDS ORDERED: CeleBREX 200 MG CAP PO SCH (06:00)
[2023-01-17] MEDS ORDERED: ACETAMINOPHEN 500 MG TAB PO SCH (06:00)
[2023-01-17] MEDS ORDERED: ROPIVACAINE 0.5% HCL/PF 150 MG, BUPIVACAINE 0.75% MPF 20 ML, EPINEPHrine 30MG/30ML (OR ... INSTIL SCH (06:00)
[2023-01-17] MEDS ORDERED: dexAMETHasone 4 MG TAB PO SCH (06:00)
[2023-01-17] MEDS ORDERED: TRANEXAMIC ACID 1,000 MG **IV Pre-op IV SCH (06:00)
[2023-01-17] MEDS ORDERED: METOCLOPRAMIDE HCL 10 MG TABLET PO SCH (06:00)
[2023-01-17] MEDS ORDERED: VANCOMYCIN HCL 1,000 MG/270 ML BAG IV SCH (06:00)
[2023-01-17] MEDS ORDERED: LR 500ML BOLUS, THEN 15ML/HR IV SCH (06:00)
[2023-01-17] MEDS ORDERED: ROPIVACAINE 0.5% 5 MG/ML 30 ML VIAL ONE (06:25)
[2023-01-17] MEDS ORDERED: MIDAZOLAM HCL 1 MG/ML 2ML VIAL ONE (06:27)
[2023-01-17] MEDS ORDERED: ONDANSETRON INJ 2 MG/ML 2 ML VIAL ONE (06:27)
[2023-01-17] MEDS ORDERED: PROPOFOL IV EMULSION 10 MG/ML 100 ML VIAL IV ONE (06:27)
[2023-01-17] MEDS ORDERED: fentaNYL citrate PF 100 MCG/2 ML VIAL ONE (06:28)
[2023-01-17] MEDS ORDERED: ORTHO JOINT ANESTHETIC ONE (06:45)
--- NOTE | 2023-01-17 06:54 | Anesthesiology Consultation ---
Date of Service January 17, 2023 Assessment & Plan ASA ASA3 Proposed Anesthesia Anesthesia Type: MAC Spinal Regional Regional Laterality: Right Site: Adductor Canal Risk / Benefits Reviewed With: PT / POA / Parent / Guardian, Accepts Plan and Informed Consent Obtained Additional Comments: original consult will not allow addendums History Surgery Operation Date: 01/17/23 07:00 Proposed Procedures p Right Total Knee Arthroplasty - Dash Lima MD Height/Weight Height: 5 ft Weight: 72.4 kg Allergies Allergy/AdvReac Type Severity Reaction Status Date / Time latex Allergy Mild Rash Verified 01/17/23 05:51 Penicillins Allergy Unknown Unknown Verified 01/17/23 05:51 pollen extracts Allergy Unknown Watery Verified 01/17/23 05:51 eyes, sneezing Medications Home Medications Medication Instructions Recorded Confirmed Last Taken Medical Marijuana 1 ea PO UD 07/04/22 01/17/23 01/16/23 20:30 acetaminophen 500 mg tablet 500 mg PO BID 07/04/22 01/17/23 01/16/23 20:30 albuterol sulfate 90 mcg/actuation 1 puff inhalation Q4H PRN 07/04/22 01/17/23 Unknown aerosol inhaler Shortness Of Breath amlodipine 10 mg tablet 10 mg PO QAM 07/04/22 01/17/23 01/16/23 08:00 buspirone 30 mg tablet 30 mg PO BID 07/04/22 01/17/23 01/16/23 20:30 cyanocobalamin (vitamin B-12) 1,000 mcg IM Q30D 07/04/22 01/17/23 12/21/22 1,000 mcg/mL injection solution cyclobenzaprine 10 mg tablet 10 mg PO HS 07/04/22 01/17/23 07/19/22 18:30 duloxetine 60 mg capsule,delayed 60 mg PO BID 07/04/22 01/17/23 01/16/23 20:30 release (Cymbalta) ezetimibe 10 mg tablet 10 mg PO QAM 07/04/22 01/17/23 01/16/23 08:00 fexofenadine-pseudoephedrine ER 1 tab PO QAM 07/04/22 01/17/23 01/16/23 08:00 180 mg-240 mg tablet,ext.release 24 hr (Brittney-D 24 Hour) gabapentin 300 mg tablet,extended 300 mg PO BID 07/04/22 01/17/23 01/16/23 20:30 release 24 hr hydroxyzine HCl 50 mg tablet 50 mg PO HS 07/04/22 01/17/23 01/16/23 20:30 levothyroxine 25 mcg tablet 25 mcg PO QAM 07/04/22 01/17/23 01/16/23 08:00 (Synthroid) olmesartan 40 mg tablet 40 mg PO QAM 07/04/22 01/17/23 01/16/23 08:00 ropinirole 2 mg tablet,extended 2 mg PO HS 07/04/22 01/17/23 01/16/23 21:00 release 24 hr simvastatin 40 mg tablet 40 mg PO QAM 07/04/22 01/17/23 01/16/23 08:00 sucralfate 1 gram tablet 1 g PO BID 07/04/22 01/17/23 01/16/23 20:30 trazodone 50 mg tablet 50 mg PO HS 07/04/22 01/17/23 01/16/23 20:30 hydrocodone 10 mg-acetaminophen 1 tab PO Q6H PRN Pain 12/24/22 01/17/23 Unknown 325 mg tablet Active Medications Generic Name Dose Route Start Last Admin Trade Name Amita PRN Reason Stop Dose Admin Acetaminophen 1,000 mg 01/17/23 06:00 01/17/23 06:06 Acetaminophen 500 Mg Tab PO 01/17/23 18:00 1,000 mg PREOP ECTOR Administration Celecoxib 200 mg 01/17/23 06:00 01/17/23 06:06 Celebrex 200 Mg Cap PO 01/17/23 18:00 200 mg PREOP ECOTR Administration Dexamethasone 8 mg 01/17/23 06:00 01/17/23 06:06 Dexamethasone 4 Mg Tab PO 01/17/23 18:00 8 mg PREOP ECTOR Administration Famotidine 20 mg 01/17/23 06:00 01/17/23 06:07 Famotidine 20 Mg Tab PO 01/17/23 18:00 20 mg PREOP ECTOR Administration Gabapentin 300 mg 01/17/23 06:00 01/17/23 06:07 Gabapentin 300 Mg Cap PO 01/17/23 18:00 300 mg PREOP ECTOR Administration Vancomycin HCl 1,000 mg in 270 mls @ 242 mls/hr 01/17/23 06:00 01/17/23 05:53 Vancomycin Hcl IV 01/17/23 18:00 242 mls/hr PREOP ECTOR Administration Lactated Ringer's 1,000 mls @ 15 mls/hr 01/17/23 06:00 01/17/23 05:53 Lr IV 01/17/23 18:00 15 mls/hr .Q24H ECTOR Administration Metoclopramide HCl 10 mg 01/17/23 06:00 01/17/23 06:06 Metoclopramide Hcl 10 Mg Tablet PO 01/17/23 18:00 10 mg PREOP ECTOR Administration NPO Date Last Intake of Fluids: 01/16/23 Time Last Intake of Fluids: 22:00 Date Last Intake of Solids: 01/16/23 Time Last Intake of Solids: 22:00 Past Medical History Medical History Anxiety and depression Asthma Stable History of anemia Remote blood transfusion History of chronic back pain History of numbness LEs History of restless legs syndrome Hyperlipidemia Hypertension Hypothyroidism Seizure Several years ago (felt to be r/t fentanyl patches), no issues since Exercise / Class Metabolic Activity II 4-5 Yardwork/Stairs/Walk up hill Past Family History Family History Other No family history of adverse response to anesthesia Past Surgical History Surgical History History of bilateral tubal ligation History of colonoscopy History of dilation and curettage History of esophagogastroduodenoscopy (EGD) History of lumbar surgery Hx of appendectomy Hx of cataract extraction R/L Hx of cervical spine surgery ACDF Hx of colonoscopy Hx of LASIK Hx of oral surgery implants placed on lower jaw S/P epidural steroid injection S/P lumbar fusion L4-S1 Decompression and fusion (07/20/22): MAC#3, ETT 7 at [facility] Past Anesthesia History No Hx of Anesthesia Complications and No Family Hx of Anesthesia Complications History of PONV No Hx of PONV and No Hx of Motion Sickness Social History Smoking Status: Former smoker tobacco type: cigarettes Do You Dip or Chew Tobacco: No Smoking End Date: 2000 Hx Alcohol Use: Yes alcohol intake frequency: holidays/special occasions only Hx Substance Use: Yes (Medical THC) substance use type: marijuana (Medical marijuana daily (vape)) Substance Use Type Other:: Medical marijuana daily Review of Systems denies fever/cough/ colds/ chest pain/ SOB/ AZEEM denies AZEEM Physical Exam ENMT Mouth: + edentulous; no TMJ abnormality and no dentition abnormality Thyromental Distance: > or= 3.5 Finger Breadths Mallampati Class: II Neck neck extension not limited Respiratory normal respiratory effort; no respiratory distress Auscultation: lungs clear to auscultation bilaterally Cardiovascular Rate/Rhythm: regular rate and regular rhythm Neurologic moves all extremities Psychiatric Orientation: alert and oriented x 3 Testing Electrocardiogram Date: 07/06/22 NSR at 71bpm. Chest X-Ray Date: 07/06/22 FINDINGS: Posterior lumbar fixation hardware is seen. Degenerative changes are seen in the spine. The cardiomediastinal silhouette is normal. The lungs are clear. No evidence of pleural effusion or pneumothorax. IMPRESSION: No acute chest disease. Stress Test Date: 03/18/17 Type: nuclear No evidence of myocardial ischemia or infarction. LVEF 55%. Stress ECG without changes diagnostic for myocardial ischemia.
--- NOTE | 2023-01-17 07:02 | History & Physical Bridge Note ---
Date of Service January 17, 2023 History & Physical Bridge Note I have examined the patient, reviewed the History & Physical and in the interval since the performance of the History & Physical I have noted the following changes of clinical significance: no changes noted
[2023-01-17] MEDS ORDERED: KETAMINE 50 MG/5 ML SYRINGE ONE (07:25)
[2023-01-17] MEDS ORDERED: ONDANSETRON INJ 2 MG/ML 2 ML VIAL IV PRN ×2 (07:26→11:09)
[2023-01-17] MEDS ORDERED: fentaNYL citrate PF 100 MCG/2 ML VIAL IV PRN (07:26)
[2023-01-17] MEDS ORDERED: ePHEDrine sulfate 50 MG/ML AMP IV PRN (07:26)
[2023-01-17] MEDS ORDERED: HYDROmorphone INJ 2 MG/ML SYR/VIAL IV PRN (07:26)
[2023-01-17] MEDS ORDERED: ATROPINE SULFATE 0.1 MG/ML 10ML SYR IV PRN (07:26)
[2023-01-17] MEDS ORDERED: ePHEDrine sulfate 50 MG/ML SYR ONE (08:02)
[2023-01-17] MEDS ORDERED: PHENYLEPHRINE HCL 10 MG/ML VIAL ONE (08:12)
--- NOTE | 2023-01-17 09:00 | Operative Report ---
Post Operative Report Pre & Post Diagnosis Operation Date: 01/17/23 07:00 Pre-Op Diagnosis: Right Knee Osteoarthritis Post-Op Diagnosis: Right Knee Osteoarthritis I identified the patient and participated in the time-out.: Yes Procedure Operation Date: 01/17/23 07:00 Actual Procedures p Right Total Knee Arthroplasty(Right), lateral release, edison and Acticoat superficial wound VAC- Dash Lima MD Surgeon Dash Lima MD Community Product Specialist Donte TORRES Estimated Blood Loss 5 Findings Consistent with Post-Op Diagnosis Specimens Bone cuts Drains 2 Hemovac Anesthesia Type General Regional Complications none Disposition Disposition: Recovery Room Indications 67-year-old female with chronic progressive osteoarthritis right knee. She has a valgus knee flexion contracture [id number] lateral compartment. Description of Procedure The patient was taken to the operating room and anesthetized under spinal MAC regional block. Patient was placed supine on the the operating table. A pneumatic tourniquet was placed about the right upper thigh. The knee exam demonstrated valgus knee range of motion 15 through 125 degrees with minor pseudolaxity laterally. The involved leg was elevated exsanguinated with Esmarch bandage and the pneumatic tourniquet was raised to 300 millimeters mercury. A longitudinal incision was made across the anterior knee. Skin flaps were elevated. An incision was made into the medial retinaculum and extended up into the mid third of the quadriceps tendon and extended down to the tibial tube rcle. Intra-articular findings demonstrated [id number] with eburnated bone lateral compartment with hypoplastic lateral femoral condyle. Intra-articular ganglion cyst anterior lateral meniscus area. Degenerative lateral meniscus tear. Chondrocalcinosis. Degenerative partial tearing ACL. Patellofemoral osteophytes grade 2-3 arthritic changes. The knee was exposed by excising cruciate ligaments and menisci and the ganglion cyst. The infrapatellar fat pad was resected. The fat pad over the anterior femur at the upper aspect of the articular surface was resected for placement of the component in that area. A subperiosteal peel lateral release was performed around the patella. The [employer] 2.0 total knee arthroplasty system was utilized for the procedure. The custom femoral cutting guide was pinned in position. The distal femoral cut was made. The size 4, 5 in 1 cutting block was placed. The anterior posterior and chamfer cuts were made. The knee was extended and a free hand cut technique was performed to the patella. The patella with was measured and the width was reproduced using a 32 patella component. 3 drill holes are made for the patella component pegs. The tibia was then subluxed. The custom tibial cutting block was pinned in position and the proximal tibial cut was made with the oscillating saw. Ligaments were balanced in extension and flexion. Did do with minor lateral capsular release off the tibia and some release of the IT band. The size 3 tibial trial was externally rotated in line with the tibial tubercle and pinned in position. The punch for the stem was used. The femoral trial was inserted and centered the notch cutting devices were used and the collet was placed. Tibial trials were used for the insert. The size 10 trial gave balanced ligaments through full range of motion. Patella tracking was assessed with range of motion. The patella tracked with some lateral patellar tilt but was centrally tracking so I did a limited lateral release leaving the synovium intact and this corrected the patella tracking to the central without tilt. The trials were removed. The Orthomix anesthetic cocktail was injected per protocol. The cut bone surfaces and soft tissue were copiously irrigated with pulsatile lavage saline solution. The final components were cemented with Refobacin cement. The final components were [employer] 2.0 right posterior stabilized size 4 femoral component, 3 right tibial component, 10 posterior stabilized right tibial polyethylene and a 32 symmetrical patella. After the cement cured, the Betadine soak was used for 3 minutes. The knee was then copiously irrigated with pulsatile lavage saline solution. 2 drains were brought out laterally connected to Hemovac. The quadr iceps tendon and medial retinaculum were closed with interrupted [id number] #1 Vicryl sutures. The knee was taken through full range of motion and repair was secure. Knee range of motion was 0 through 130 degrees. the subcutaneous tissues were closed with 2-0 Vicryl sutures. The skin was closed with vanessa. A edison and Acticoat superficial wound VAC was applied. The tourniquet was let down and the patient had good capillary refill to the extremity. The patient tolerated the procedure well. My physician statistical assistant Wade TORRES participated as assistant center director and was integral part in all aspects of the procedure including prepping, draping, leg positioning, soft tissue retraction, instrument management and assisted in the closure , superficial wound VAC application and will participate in postoperative care the patient. I attest to the content of the Intraoperative Record and any orders documented therein. Any exceptions are noted below.
--- NOTE | 2023-01-17 10:07 | XRay Report ---
RIGHT KNEE 2 VIEWS History: Right total knee arthroplasty. Degenerative arthritis. Postop. FINDINGS: The patient is status post a right total knee arthroplasty. The hardware is intact. No frac ture or dislocation. Skin vanessa and surgical drains are in place. IMPRESSION: Right total knee arthroplasty. No evidence for hardware complication. ACT 112: Negative or not required by law. Electronically signed by: El Fitzgerald M.D. 01/17/2023 10:06 AM
[2023-01-17] MEDS ORDERED: bisacodyL 10 MG SUPP PR PRN (11:09)
[2023-01-17] MEDS ORDERED: MAGNESIUM HYDROXIDE SUSP 30 ML UDC PO PRN (11:09)
[2023-01-17] MEDS ORDERED: NALOXONE HCL 0.4 MG/1 ML VIAL/CARP IV PRN (11:09)
[2023-01-17] MEDS ORDERED: SODIUM CHLORIDE 0.9% 1000ML 1,000 ML IV SCH (11:09)
[2023-01-17] MEDS ORDERED: VANCOMYCIN CONSULT ACTIVE PRN (11:09)
[2023-01-17] MEDS ORDERED: HYDROmorphone INJ 0.5 MG/0.5 ML SYR IV PRN (11:09)
[2023-01-17] MEDS ORDERED: METOCLOPRAMIDE HCL INJ 5 MG/ML 2 ML VIAL IV PRN (11:09)
[2023-01-17] MEDS ORDERED: ALBUTEROL HFA 8 GM INHALER INH PRN (11:09)
--- NOTE | 2023-01-17 12:23 | Anesthesiology Progress Note ---
Date of Service January 17, 2023 Anesthesia Post Procedure Vital Signs Vital Signs: Temp Pulse Pulse Resp BP Pulse Ox O2 Del Method 01/17/23 11:30 65 16 146/79 H 99 Nasal Cannula 01/17/23 11:00 36.7 C 65 16 120/70 95 Room Air 01/17/23 10:15 62 13 121/63 95 Room Air 01/17/23 10:05 64 15 123/64 98 Room Air 01/17/23 10:35 36.5 C 62 12 126/59 L 97 Nasal Cannula 01/17/23 10:25 36.5 C 63 15 123/60 92 Room Air 01/17/23 09:55 66 20 127/63 98 Oxymask 01/17/23 09:49 36.2 C L 79 14 122/87 100 Oxymask O2 Flow Rate 01/17/23 11:30 2 01/17/23 11:00 01/17/23 10:15 01/17/23 10:05 0 01/17/23 10:35 2 01/17/23 10:25 01/17/23 09:55 3 01/17/23 09:49 5 Transfer of Care Handoff Completed per policy Notes Mental Status: alert / awake / arousable and participated in evaluation Patient Amnestic to Procedure: Yes Nausea / Vomiting: adequately controlled Pain: adequately controlled Airway Patency, RR, SpO2: stable & adequate BP & HR: stable & adequate Hydration State: stable & adequate Anesthetic Complications: no major complications apparent and Pt Satisfied with anesthetic care
--- NOTE | 2023-01-17 13:39 | Hospitalist Consultation ---
Date of Consultation January 17, 2023 Assessment & Plan (1) Status post total right knee replacement: Acute/stable S/p R TKA by Dr. Lima on 01/17/23 - Reviewed preoperative labs from January 04, 2023, preop hgb 11.3/hct 34.2, no electrolyte issues or renal failure noted - Pain control, drain management, DVT ppx, ambulation/wb status as per primary service - DVT ppx should be carried out for a minimum of 14 days, but drug choice/dose/duration is ultimately at ortho's discretion - Recommend use of incentive spirometer q1h while awake for atelectasis/pna prevention - Recommend f/u H&H and BMP in AM - Hold ARB d/t spinal anesthesia (2) Hypothyroidism: Chronic/stable - No TSH on file - Currently on Synthroid 25 mcg daily - Add on TSH tomorrow AM (3) Hypertension: Chronic/stable - HTN and HLD - Hold ARB as above d/t spinal anesthesia - May continue Amlodipine 10mg daily, resume ARB pod#2 if HD stable and no ABIEL - Continue statin therapy (4) Asthma: Chronic/stable - Utilizes intermittent Albuterol as needed (5) Anxiety and depression: Chronic/stable - Continue on Cymbalta, BuSpar, and Trazodone Plan Plan as outlined above. No further recommendations at this time. Will sign off as patient is medically stable for discharge once deemed suitable from an orthopedic standpoint. Will chart check in AM to review labs ordered. Thank you for allowing us to participate in the care of your patient. Will discuss above with Dr. Arceo who will also see and evaluate this patient. Further order will be implemented as warranted. Supervising Physician Co-Signing Physician Notes I personally saw and examined the patient. I verified all bui points and agree with Ariadna Talbert PA-C with the following exceptions and/or additions: 67 year old female POD#0 right TKA. EBL 5ml. No concerns or questions post operatively. No GERD with ASA/celebrex use. O/E A&Ox3, HS RRR, no murmurs, Chest CTAB, Abdo SNT, NV intact distal to operation site in right foot A/P VTE/Pain/Bowel management per primary orthopedic team Other chronic medical issues - no change to above. Currently stable History of Present Illness Reason for Consultation: Medical management Requesting Physician: Dr. Lima Attending Physician: Dash Lima MD History of Present Illness Jazmin Luis is a 67 yo F with a pmhx of hypothyroidism, depression, seizure d/o, and HTN who was admitted under Dr. Lima's service for an elective R TKA due to chronic knee pain that failed conservative measures. She was taken to the OR today where she receive spinal anesthesia. She was medicated perioperatively with Ropivacaine, Bupivacaine, Decadron, TXA, crystalloid, and prophylactic antibiotics. She had an uneventful perioperative course and was transitioned to pacu where a nerve blocked was performed for additional pain management. At the time of my assessment, she is resting comfortably in bed on the floor. She has no complaints of chest pain, dyspnea, n/v/d, f/c, headache, or gu symptoms. Her leg is still fairly numb but she is able to move her toes. She has no personal or family h/o PE or DVT. Bean resides in a two story home with her but has access to a first floor bedroom and bathroom. She plans to return there upon discharge. Hospitalists have been asked to see in consult for routine post operative medical management. Allergies Allergy/AdvReac Type Severity Reaction Status Date / Time latex Allergy Mild Rash Verified 01/17/23 05:51 Penicillins Allergy Unknown Unknown Verified 01/17/23 05:51 pollen extracts Allergy Unknown Watery Verified 01/17/23 05:51 eyes, sneezing Home Medications Medication Instructions Recorded Confirmed Type Medical Marijuana 1 ea PO UD 07/04/22 01/17/23 History acetaminophen 500 mg tablet 500 mg PO BID 07/04/22 01/17/23 History albuterol sulfate 90 mcg/actuation 1 puff inhalation Q4H PRN 07/04/22 01/17/23 History aerosol inhaler Shortness Of Breath amlodipine 10 mg tablet 10 mg PO QAM 07/04/22 01/17/23 History buspirone 30 mg tablet 30 mg PO BID 07/04/22 01/17/23 History cyanocobalamin (vitamin B-12) 1,000 mcg IM Q30D 07/04/22 01/17/23 History 1,000 mcg/mL injection solution cyclobenzaprine 10 mg tablet 10 mg PO HS 07/04/22 01/17/23 History duloxetine 60 mg capsule,delayed 60 mg PO BID 07/04/22 01/17/23 History release (Cymbalta) ezetimibe 10 mg tablet 10 mg PO QAM 07/04/22 01/17/23 History fexofenadine-pseudoephedrine ER 1 tab PO QAM 07/04/22 01/17/23 History 180 mg-240 mg tablet,ext.release 24 hr (Brittney-D 24 Hour) gabapentin 300 mg tablet,extended 300 mg PO BID 07/04/22 01/17/23 History release 24 hr hydroxyzine HCl 50 mg tablet 50 mg PO HS 07/04/22 01/17/23 History levothyroxine 25 mcg tablet 25 mcg PO QAM 07/04/22 01/17/23 History (Synthroid) olmesartan 40 mg tablet 40 mg PO QAM 07/04/22 01/17/23 History ropinirole 2 mg tablet,extended 2 mg PO HS 07/04/22 01/17/23 History release 24 hr simvastatin 40 mg tablet 40 mg PO QAM 07/04/22 01/17/23 History sucralfate 1 gram tablet 1 g PO BID 07/04/22 01/17/23 History trazodone 50 mg tablet 50 mg PO HS 07/04/22 01/17/23 History hydrocodone 10 mg-acetaminophen 1 tab PO Q6H PRN Pain 12/24/22 01/17/23 History 325 mg tablet Patient History Medical History Anxiety and depression Asthma Stable History of anemia Remote blood transfusion History of chronic back pain History of numbness LEs History of restless legs syndrome Hyperlipidemia Hypertension Hypothyroidism Seizure Several years ago (felt to be r/t fentanyl patches), no issues since Surgical History History of bilateral tubal ligation History of colonoscopy History of dilation and curettage History of esophagogastroduodenoscopy (EGD) History of lumbar surgery Hx of appendectomy Hx of cataract extraction R/L Hx of cervical spine surgery ACDF Hx of colonoscopy Hx of LASIK Hx of oral surgery implants placed on lower jaw S/P epidural steroid injection S/P lumbar fusion L4-S1 Decompression and fusion (07/20/22): MAC#3, ETT 7 at [facility] Family History Other No family history of adverse response to anesthesia Social History Smoking Status: Former smoker Smoking End Date: Quit 2000; Second Hand Exposure: No; Do You Dip or Chew Tobacco: No; Tobacco Cessation Education Requested by Patient: No Hx Alcohol Use: Yes Hx Substance Use: Yes (Medical THC) Substance Use Type Other:: Medical marijuana daily Preferred Language: Samoan 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 AAOx4. NAD. LUNGS: Clear to auscultation bilaterally w/o W/R/R. CARDIOVASCULAR: Regular rate and rhythm. Soft 2/6 CARSON. No g/r. ABDOMEN: Soft, non-tender and non-distended. BS normoactive x 4 quad. EXTREMITIES: No edema. Non-tender. Peripheral pulses +2/4. R knee is dressed and wrapped. Obvious edison dressing noted and hemovac extending from incision. Neg eladia's on R. Cap refill <2 sec. Results & Data Results & Data Vital Signs (Past 12 Hours) Vital Signs Temp Pulse Pulse Resp BP Pulse Ox O2 Del Method 01/17/23 12:30 37.1 C 71 18 139/72 96 Room Air 01/17/23 11:30 65 16 146/79 H 99 Nasal Cannula 01/17/23 11:00 36.7 C 65 16 120/70 95 Room Air 01/17/23 10:15 62 13 121/63 95 Room Air 01/17/23 10:05 64 15 123/64 98 Room Air 01/17/23 10:35 36.5 C 62 12 126/59 L 97 Nasal Cannula 01/17/23 10:25 36.5 C 63 15 123/60 92 Room Air 01/17/23 09:55 66 20 127/63 98 Oxymask 01/17/23 09:49 36.2 C L 79 14 122/87 100 Oxymask O2 Flow Rate 01/17/23 12:30 01/17/23 11:30 2 01/17/23 11:00 01/17/23 10:15 01/17/23 10:05 0 01/17/23 10:35 2 01/17/23 10:25 01/17/23 09:55 3 01/17/23 09:49 5 PG Care Time/CCT Total # of Minutes Spent Total Time Spent with Patient: Total time spent is greater than 50% in coordination of care (as documented) at patient's floor/unit and/or counseling patient: Coding Level of Care Code 86407 IN/OBS CONSULT LVL 3,45M Diagnoses Status post total right knee replacement Z96.651 Hypothyroidism E03.9 Hypertension I10 Asthma J45.909 Anxiety and depression F41.9; F32.A
[2023-01-17] MEDS: ACETAMINOPHEN 500 MG TAB PO SCH ×2 (16:00→21:52)
[2023-01-17] MEDS ORDERED: VANCOMYCIN HCL 1,000 MG in SODIUM CHLORIDE 0.9% 250 ML IV SCH (20:00)
[2023-01-17] MEDS: DULoxetine HCL 60 MG CAP PO SCH (20:22)
[2023-01-17] MEDS: ASPIRIN 81 MG ECTAB PO SCH (20:22)
[2023-01-17] MEDS: GABAPENTIN 300 MG CAP PO SCH (20:22)
[2023-01-17] MEDS: DOCUSATE SODIUM 100 MG CAP PO SCH (20:24)
[2023-01-17] MEDS: CeleBREX 200 MG CAP PO SCH (20:24)
[2023-01-17] MEDS: busPIRone 15 MG TAB PO SCH (20:25)
[2023-01-17] MEDS ORDERED: hydrOXYzine HCl 25 MG TAB PO SCH (21:00)
[2023-01-17] MEDS ORDERED: SENNA 8.6 MG TAB PO SCH (21:00)
[2023-01-17] MEDS ORDERED: traZODone HCL 50 MG TAB PO SCH (21:00)
[2023-01-17] MEDS ORDERED: rOPINIRole HCL 2 MG TABLET PO SCH (21:00)
[2023-01-17] MEDS: SUCRALFATE 1 GM TAB PO SCH (21:52)
[2023-01-18] MEDS: ACETAMINOPHEN 500 MG TAB PO SCH (05:59)
[2023-01-18] MEDS: oxyCODONE HCL IR 5 MG TAB (IMMEDIATE RELEASE) PO PRN ×2 (06:00→12:33)
[2023-01-18] MEDS ORDERED: LEVOTHYROXINE SODIUM 25 MCG TABLET PO SCH (06:30)
[2023-01-18] MEDS: SUCRALFATE 1 GM TAB PO SCH (08:15)
[2023-01-18] MEDS: ASPIRIN 81 MG ECTAB PO SCH (08:15)
[2023-01-18] MEDS: DULoxetine HCL 60 MG CAP PO SCH (08:16)
[2023-01-18] MEDS: GABAPENTIN 300 MG CAP PO SCH (08:16)
[2023-01-18] MEDS: busPIRone 15 MG TAB PO SCH (08:16)
[2023-01-18] MEDS: DOCUSATE SODIUM 100 MG CAP PO SCH (08:16)
[2023-01-18] MEDS: CeleBREX 200 MG CAP PO SCH (08:16)
[2023-01-18 08:57] LABS: Hemoglobin 9.8 g/dl (12.0-16.0); Mean Corpuscular Hemoglobin 28.8 pg (25.0-34.0); Mean Corpuscular Hgb Conc 33.8 g/dL (32.0-36.0); Mean Corpuscular Volume 85.3 fL (80.0-100.0); Mean Platelet Volume 9.6 fL (9.4-12.4); Platelet Count 375 K/uL (130-400); RDW Coefficient of Variation 14.8 % (11.5-14.5); RDW Standard Deviation 46.5 fL (36.4-46.3); White Blood Count 16.86 K/ul (4.8-10.8)
--- NOTE | 2023-01-18 08:57 | Orthopedic Progress Note ---
Date of Service January 18, 2023 Assessment & Plan (1) Primary osteoarthritis of right knee: Plan: Postop day 1 status post right total knee arthroplasty. PT/OT protocols. Weightbearing as tolerated. DVT prophylaxis-aspirin p.o. twice daily, Camilo, OLEKSANDR [place]. Pain management as written. Leukocytosis-likely secondary from surgical stress and/or preoperative steroids. Patient currently asymptomatic. Elevation of BP this morning. Patient was just given her blood pressure medications a few minutes before my arrival. Plan to recheck BP later this morning. Discharge plans-patient is planning for home health services upon discharge. We will plan on having the home health service remove her drain and dressing tomorrow. Plan for discharge to home today if progressing well with PT. Admission and Anticipated Discharge Date Admission Date: January 17, 2023 Subjective Postop day 1 Patient sitting in her chair at the bedside. No complaints this morning. Pain is controlled. Denies shortness of breath, chest pain, lightheadedness. She is hoping to go home today. Physical Exam Physical Exam: Dressings are clean, dry, and intact. Calves are soft nontender. Neurovascular intact. Toes are mobile. Hemovac drainage was 175 mL from the previous shift. Results & Data Vital Signs (Past 12 Hours) Vital Signs Temp Pulse Resp BP Pulse Ox O2 Del Method 01/18/23 06:24 36.9 C 76 18 179/83 H 95 Room Air 01/18/23 02:30 37 C 67 18 138/69 95 Room Air 01/17/23 23:30 36.9 C 84 18 168/86 H 98 Room Air
[2023-01-18] MEDS ORDERED: amLODIPine BESYLATE 5 MG TAB PO SCH (09:00)
[2023-01-18] MEDS ORDERED: LOSARTAN POTASSIUM 50 MG TAB PO SCH (09:00)
[2023-01-18] MEDS ORDERED: MULTIVITAMIN TAB PO SCH (09:00)
[2023-01-18] MEDS ORDERED: FEXOFENADINE HCL 180 MG TAB PO SCH (09:00)
[2023-01-18] MEDS ORDERED: EZETIMIBE 10 MG TABLET PO SCH (09:00)
[2023-01-18] MEDS ORDERED: SIMVASTATIN 40 MG TAB PO SCH (09:00)
[2023-01-18 09:07] LABS: BUN Creatinine Ratio 16.2 (10-20); Calcium 8.5 mg/dl (8.6-10.3); Creatinine Clr Calc Pharmacy 43.1 ml/min; Est GFR (African American) 59.1 ml/min; Potassium 4.1 mmol/L (3.5-5.1)
--- NOTE | 2023-01-18 11:05 | Communication Note ---
Date of Service: January 18, 2023 Did not see patient this AM, but did review labs. WBC count 16, post surgical, but had this back in pre operative labwork. Do not suspect infection. Incentive spirometer for atelectasis and PNA prevention. Hgb drop appropriate for post- surgery. Follow up CBC with PCP in a few weeks to eval WBC and Hgb.
--- NOTE | 2023-01-18 19:06 | Discharge Summary ---
Date of Service January 18, 2023 Admission HPI Per Admitting Provider 67yo female with PMHx significant for asthma, HTN, hypothyroid who presents with ongoing right knee pain. Pain is interfering with her daily activity. She has failed conservative measures and would like to proceed with surgical intervention. Patient denies headaches, sweats, fevers, chills, double vision, blurred vision, cough, sore throat, dysphagia, chest pain, sob, wheezing, n/v/d/c, numbness, tingling, fatigue, urinary symptoms, mood disorders. ROS positive for right knee pain and stiffness. Admission Exam Per Admitting Provider Constitutional: well developed and well nourished; no acute distress Eyes: PERRL, conjunctivae normal, anicteric sclerae ENMT: external ear and nose normal, oropharynx normal Neck: trachea midline, no thyromegaly Respiratory: normal respiratory effort, lungs clear to auscultation Cardiovascular: RRR, no murmur, no edema Musculoskeletal: Right knee: Valgus alignment, mild effusion. Lateral joint line tenderness. Amberly's is guarded. ROM 10-120 degrees. Stable to valgus and varus stress. Skin: no rashes, warm and dry Neurologic: patellar DTR's 2+ bilat, sensation intact Psychiatric: A+Ox3, euthymic affect Principal Diagnosis Right knee osteoathritis Discharge Exam Dressings are clean, dry, and intact. Calves are soft nontender. Neurovascular intact. Toes are mobile. Hemovac drainage was 175 mL from the previous shift. Constitutional well developed and well nourished; no acute distress Discharge Data Allergies Allergy/AdvReac Type Severity Reaction Status Date / Time latex Allergy Mild Rash Verified 01/17/23 05:51 Penicillins Allergy Unknown Unknown Verified 01/17/23 05:51 pollen extracts Allergy Unknown Watery Verified 01/17/23 05:51 eyes, sneezing Consultations 01/14/23 10:48 Consult Hospitalist Routine Procedures Performed Operation Date: 01/17/23 07:00 Actual Procedures p Right Total Knee Arthroplasty(Right) - Dash Lima MD Ordered Studies 01/17/23 US - OR guided needle placemen Routine Hospital Course (1) Primary osteoarthritis of right knee: Postop day 1 status post right total knee arthroplasty. PT/OT protocols. Weightbearing as tolerated. DVT prophylaxis-aspirin p.o. twice daily, SCDs, OLEKSANDR [place]. Pain management as written. Leukocytosis-likely secondary from surgical stress and/or preoperative steroids. Patient currently asymptomatic. Elevation of BP this morning. Patient was just given her blood pressure medications a few minutes before my arrival. Plan to recheck BP later this morning. Discharge plans-patient is planning for home health services upon discharge. We will plan on having the home health service remove her drain and dressing tomorrow. Plan for discharge to home today if progressing well with PT. Lab Results 01/17/23 01/18/23 01/18/23 Range/Units 05:30 07:47 07:47 WBC 16.86 H (4.8-10.8) K/ul RBC 3.40 L (4.20-5.40) M/uL Hgb 9.8 L (12.0-16.0) g/dl Hct 29.0 L (37.0-47.0) % MCV 85.3 (80.0-100.0) fL MCH 28.8 (25.0-34.0) pg MCHC 33.8 (32.0-36.0) g/dL RDW Std Deviation 46.5 H (36.4-46.3) fL RDW Coeff of Deidre 14.8 H (11.5-14.5) % Plt Count 375 (130-400) K/uL MPV 9.6 (9.4-12.4) fL Sodium 136 (136-145) mmol/L Potassium 4.1 (3.5-5.1) mmol/L Chloride 103 (98-107) mmol/L Carbon Dioxide 27 (21-32) mmol/L Anion Gap 6 (3-11) BUN 18 (6-23) mg/dl Creatinine 1.11 (0.6-1.2) mg/dl Est Cr Clr Drug Dosing 43.1 ml/min Est GFR ( Amer) 59.1 ml/min Est GFR (Non-Af Amer) 51.0 ml/min BUN/Creatinine Ratio 16.2 (10-20) Glucose 100 H (70-99(Fasting)) mg/dl Calcium 8.5 L (8.6-10.3) mg/dl TSH (0.300-4.500) uIu/ml SARS-CoV-2, RNA, NAAT NEGATIVE (NEGATIVE) 01/18/23 Range/Units 07:47 WBC (4.8-10.8) K/ul RBC (4.20-5.40) M/uL Hgb (12.0-16.0) g/dl Hct (37.0-47.0) % MCV (80.0-100.0) fL MCH (25.0-34.0) pg MCHC (32.0-36.0) g/dL RDW Std Deviation (36.4-46.3) fL RDW Coeff of Deidre (11.5-14.5) % Plt Count (130-400) K/uL MPV (9.4-12.4) fL Sodium (136-145) mmol/L Potassium (3.5-5.1) mmol/L Chloride (98-107) mmol/L Carbon Dioxide (21-32) mmol/L Anion Gap (3-11) BUN (6-23) mg/dl Creatinine (0.6-1.2) mg/dl Est Cr Clr Drug Dosing ml/min Est GFR ( Amer) ml/min Est GFR (Non-Af Amer) ml/min BUN/Creatinine Ratio (10-20) Glucose (70-99(Fasting)) mg/dl Calcium (8.6-10.3) mg/dl TSH 0.931 (0.300-4.500) uIu/ml SARS-CoV-2, RNA, NAAT (NEGATIVE) Total Time Total Time Spent Total Time Spent (In Minutes): 20 Discharge Plan Discharge Items Patient Disposition: Home - Home Health Services Reason For Visit: Right Knee Osteoarthritis Discharge Diagnosis: Right Knee Osteoarthritis Activity: Per Instructions section Weightbearing: Right weightbearing Non-emergency contact: Surgeon Call non-emergency contact if: you have any medication questions, your pain is not controlled, your temperature is above 101.5, your wound has increased redness and your wound has increased drainage Follow-up/Referrals: Dash Lima MD [Surgeon] - (Follow up with Dr. Lima or his PA in 2 weeks from the day of your surgery for your first post operative visit. ) Jerry Og DO [Primary Care Provider] - 01/24/23 10:20 am Diet: Regular Addtl Attending Provider Instructions: HOME HEALTH TO REMOVE JACKIE WRAP/COTTON ROLL AND DC HEMOVAC TOMORROW. 01/19/23 ACTIVITY RECOMMENDATIONS: SELF CARE INSTRUCTIONS AFTER TOTAL KNEE REPLACEMENT A. You may need to continue a physical therapy program after discharge from the hospital. There are several options available to you. Your doctor will assist you in selecting the best one for you. 1. An out-patient facility 2 to 3 times a week for therapy or home therapy. 2. Continue working on all exercises taught to you in the hospital. Your goals should be to increase bending of your knee to 90 degrees and beyond and to fully straighten your knee. B. You may progress at your own pace from walking with a walker or crutches to a cane; then to no assistive devices. C. Make walking a part of your daily routine. Be up as much as comfortable with rest periods throughout the day. Rest with leg elevation is very important. Use the ice wrap frequently for the first 3-4 weeks. D. There are no restrictions on activities. You may ride in a car, shop, participate in driller and reamer and all social activities. E. Wear the long elastic stockings (OLEKSANDR hose) 20 hours a day for 2 weeks after surgery. They can be removed several times a day for laundering and for a bath. F. You may shower, no tub baths until cleared by your doctor. SPECIAL CARE INSTRUCTIONS: VERY IMPORTANT TO READ AND REVIEW A. There are a few signs you need to watch for after you are home. Call [facility] if you notice any of the followin. Increased severe knee pain. Some pain is expected especially when you exercise. 2. Increased swelling in your leg or knee; pain or swelling of the calf muscle in either lower leg. 3. Any fluid drainage from the incision. 4. Shortness of breath or chest pain. B. Please call [facility] at if you have any concerns or questions about your operation or recovery. The doctor or his nurse will return your call promptly. C. You must take antibiotics before dental work, bladder, bowel or other surgery. Your doctor will provide you with a permanent care to carry describing this precaution. IMPORTANT: * REMEMBER TO TAKE ASPIRIN, 81 MG, TWICE DAILY FOR 4 WEEKS UNLESS OTHERWISE DIRECTED. THIS IS YOUR BLOOD THINNER. * HIGH RISK PATIENTS MAY BE PRESCRIBED A STRONGER BLOOD THINNER. THIS WILL BE PROVIDED AT DISCHARGE. * CALL IF INCREASED PAIN, REDNESS, DRAINAGE OR FEVER GREATER THAT 101. * WEAR OLEKSANDR HOSE 20 HOURS PER DAY FOR 2 WEEKS. * ROSA MARIA Dressing - This is a large suction dressing covering your incision. This will help pull any excess drainage from the wound and allow your incision to heal properly. You may shower with this if you can keep the unit outside of the shower. If any bleeding or leakage is noted please call your doctor's office. This will remain on your incision for 7 days and then should be removed. This can be done yourself or by the home nursing staff if applicable. The entire unit is disposable once removed. Once removed, keep incision clean and dry. If redness or drainage is noted, please call your surgeon. . FOLLOW UP VISIT: If appointment is not already scheduled: Please call [facility] to make a follow-up appointment for 2 weeks after your surgery at . Stand-Alone Forms: My [facility] Stayful, Smoking Cessation Medications and DC Order Prescriptions: New acetaminophen [Tylenol Extra Strength] 500 mg Tablet 1,000 mg PO Q8 14 Days Qty: 84 0RF aspirin 81 mg Tablet,Delayed Release (Dr/Ec) 81 mg PO BID 30 Days Qty: 60 0RF celecoxib [Celebrex] 200 mg Capsule 200 mg PO BID 14 Days Qty: 28 0RF polyethylene glycol 3350 [Miralax] 17 gram powder in packet 17 g PO DAILY PRN (Reason: constipation) Qty: 5 0RF oxycodone 5 mg tablet 5 mg PO Q4H MDD 6 PRN (Reason: pain) Qty: 30 0RF Continued cyclobenzaprine 10 mg Tablet 10 mg PO HS trazodone 50 mg Tablet 50 mg PO HS sucralfate 1 gram Tablet 1 g PO BID hydroxyzine HCl 50 mg Tablet 50 mg PO HS simvastatin 40 mg Tablet 40 mg PO QAM levothyroxine [Synthroid] 25 mcg Tablet 25 mcg PO QAM amlodipine 10 mg Tablet 10 mg PO QAM cyanocobalamin (vitamin B-12) 1,000 mcg/mL Solution 1,000 mcg IM Q30D buspirone 30 mg Tablet 30 mg PO BID albuterol sulfate 90 mcg/actuation Hfa Aerosol Inhaler 1 puff INHALATION Q4H PRN (Reason: Shortness Of Breath) olmesartan 40 mg Tablet 40 mg PO QAM ezetimibe 10 mg Tablet 10 mg PO QAM duloxetine [Cymbalta] 60 mg Capsule,Delayed Release(Dr/Ec) 60 mg PO BID fexofenadine-pseudoephedrine [Britntey-D 24 Hour] 180-240 mg Tablet Extended Release 24 Hr 1 tab PO QAM ropinirole 2 mg Tablet Extended Release 24 Hr 2 mg PO HS gabapentin 300 mg Tablet Extended Release 24 Hr 300 mg PO BID Held Medical Marijuana 1 ea PO UD Hold Instructions: Please refrain from using this medication until you have your reduced or stop the amount of oxycodone you are taking for pain control for your knee. hydrocodone-acetaminophen 10-325 mg Tablet 1 tab PO Q6H PRN (Reason: Pain) Hold Instructions: Please do not take this medication while you are taking oxycodone Discontinued acetaminophen 500 mg Tablet 500 mg PO BID Admission Data Admit Date/Time: 01/17/23 09:49 Attending Provider: Dash Lima Admit Provider: Dash Lima Primary Care Provider: Jerry Og Other Providers: Karthik Arceo ; Greer Brody ; [facility] Other Interventions: Discharge Summary Assessment (RN) Last Done: 01/18/23 12:15
[2023-01-20] MEDS ORDERED: CYANOCOBALAMIN 1000 MCG/ML VIAL IM SCH (09:00)
== END 2023-01-18 12:57 | disposition home health service (06) ==
LOC: 3N 05:24 → ASU 05:24